=== PATIENT | female | born 1930 | race Caucasian/White ===

== ENCOUNTER 2016-06-23 18:53 | Emergency (ER) | payer OTHER, MEDICARE ==
[~2016-06-23] VITALS: Ht 152.4 cm; Wt 58.1 kg
[~2016-06-23 18:53] MED LIST: ALLOPURINOL300 M1 PO; DETROL LA4 M1 PO; METOPROLOL SUCC25 M1 PO; NORVASC5 M1 PO; PLAQUENIL200 M1 PO; PREDNISONE5 M1 PO; SENNA8.6 M3 PO; SIMVASTATIN5 M2 PO; SODIUM BICARBO650 M1 PO; ULTRACET TABLE1 EACH PO; VITAMIN D2000 UNI1 PO; ZESTRIL10 M1 PO
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
[2016-06-23] MEDS ORDERED: FOLIC ACID0.8 M2 PO (20:51)
[2016-06-23] MEDS ORDERED: LISINOPRIL10 M1 PO (20:51)
[2016-06-23] MEDS ORDERED: MAGNESIUM250 M2 PO (20:51)
[2016-06-23] MEDS ORDERED: VITAMIN B-121000 MC3 PO (20:52)
[2016-06-23] MEDS ORDERED: LISINOPRIL5 M1 PO (20:53)
[2016-06-23] MEDS ORDERED: LANSOPRAZOLE30 M2 PO (20:54)
--- NOTE | 2016-06-23 20:54 | CT SCAN REPORT ---
EXAMINATION: CT LUMBAR SPINE WITHOUT CONTRAST CLINICAL INFORMATION: Pain following a fall. COMPARISON: No relevant prior studies are available for comparison. TECHNIQUE: Helical non-contrast CT images were obtained through the lumbar spine and 1.25 and 2.5 mm axial reconstructions were reviewed along with sagittal and coronal MPRs. DLP: 303.50 mGy-cm FINDINGS: There is no acute fracture or subluxation. The normal lumbar lordosis is maintained. There is loss of intervertebral disc space height at T12-L1 as well as at L4-L5. There is grade 1/2 anterolisthesis of L4 on L5 with associated severe bilateral facet arthropathy. SPINAL LEVELS: T12-L1: Loss of disc space height. Disc osteophyte complex causing mild central canal stenosis. No significant neural foraminal stenosis. L1-L2: Disc osteophyte complex causing minimal central canal stenosis. Bilateral facet hypertrophy and uncinate spurring causing mild bilateral neural foraminal stenosis. L2-L3: Left lateral disc bulge and bilateral facet hypertrophy causes severe left and moderate right neural foraminal stenosis. No significant central canal stenosis. L3-L4: Small disc osteophyte complex. Severe bilateral facet arthropathy causing moderate bilateral neural foraminal stenosis. No significant central canal stenosis. L4-L5: Anterolisthesis of L4 on L5 with uncovering of the intervertebral disc and near-complete loss of intervertebral disc space height. Moderate central canal stenosis. Severe bilateral facet arthropathy. Moderate bilateral neuroforaminal stenosis. L5-S1: Disc osteophyte complex causing mild central canal stenosis. Bilateral facet hypertrophy causing mild bilateral neural foraminal stenosis. SOFT TISSUES: The visualized paraspinal soft tissues are unremarkable. There is diffuse atherosclerotic calcifications within the abdominal aorta and its branch vessels. IMPRESSION: 1. No fracture or subluxation. 2. 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 3. Anterolisthesis of L4 on L5 with moderate central canal as well as moderate bilateral neural foraminal stenosis.
--- NOTE | 2016-06-23 21:07 | RADIOLOGY REPORT ---
EXAMINATION: XR PELVIS CLINICAL INFORMATION: Pain following a fall. COMPARISON: No relevant prior studies are available for comparison. TECHNIQUE: AP view of the pelvis. FINDINGS: Severe degenerative disc disease within the visualized lower lumbar spine. Total right hip replacement without perihardware lucency to suggest loosening or infection. No acute osseous or hardware fracture. Severe left hip joint space narrowing with subchondral sclerosis and small marginal osteophytes. Phleboliths within the pelvis. IMPRESSION: 1. No acute fracture. 2. Severe degenerative disc disease within the visualized lower lumbar spine. 3. Severe left hip osteoarthritis. 4. 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
[2016-06-23] MEDS ORDERED: MACROBID 100 M100 MG PO (21:40)
[2016-06-23 21:46] VITALS: BP 134/76
--- NOTE | 2016-06-24 11:09 | NUR ---
06/24 CASE MGMT- CALL FROM PT DAUGHTER PRIMITIVO REQUESTING WE SET UP HHS FOR PT VIA [facility] [place] [phone]. W10 WAS NOT LEFT ON MY DESK OVERNIGHT WAS AT RISK MANAGEMENT CONSULTANT DESK, JUST RECEIVED. PT DAUGHTER STATING PT CAN NOT EVEN GET OUT OF BED BUT HAS SUPPORT AT HOME. PRIMITIVO ESTES HAS 3 SISTERS TO HELP AND PT BUT WILL BE ONLY AND PT OVER NIGHTS. I ENCOURAGED THAT IF PT COUD NOT GET OUT OF BED PT SHOULD RETURN BACK TO ER FOR PT EVALUATION AND POSSIBLE PLACEMENT. I EXPRESSED MY CONCERNS AND AGAIN STRONGLY ENCOURAGED PT RETURN BACK TO ER FOR PT EVAL. PT DAUGHTER WOULD RATHER HAVE HHS SET UP. SPOKE WITH KAT AT [facility] [place] AND INFORMED AND SHE STATES SHE WILL CONTACT PT DAUGHTER AND ENCOURAGE THE SAME BECAUSE IF THEY GET OUT THERE PER KAT AND PT CAN NOT GET OUT OF BED THEY WILL SEND HER BACK TO ER. DR ANDRES AWARE.
== END 2016-06-23 22:06 ==
LOC: ERH 18:53
DX: T14.8 Other injury of unspecified body region (principal); M51.36 Other intervertebral disc degeneration, lumbar region; R35.0 Frequency of micturition; W19.XXXA Unspecified fall, initial encounter; Y93.9 Activity, unspecified; Y92.9 Unspecified place or not applicable
CPT/HCPCS: 72170; 81001; 93005; 93010

== ENCOUNTER 2016-06-24 12:36 | Inpatient (IN) | payer OTHER, MEDICARE ==
[~2016-06-24] VITALS: Ht 152.4 cm; Wt 58.1 kg
[~2016-06-24 12:36] MED LIST changes: +FOLIC ACID0.8 M2 PO; +LANSOPRAZOLE30 M2 PO; +LISINOPRIL10 M1 PO; +LISINOPRIL5 M1 PO; +MACROBID 100 M100 MG PO; +MAGNESIUM250 M2 PO; +VITAMIN B-121000 MC3 PO
[2016-06-24 13:59] LABS: ABSOLUTE BASOPHIL COUNT 0 /CUMM (0.0-0.2); ABSOLUTE EOSINOPHIL COUNT 0 /CUMM (0.0-0.7); ABSOLUTE GRANULOCYTE CT 5.2 /CUMM (1.4-6.5); ABSOLUTE LYMPH COUNT 0.6 /CUMM (1.2-3.4); ABSOLUTE MONOCYTE COUNT 0.5 /CUMM (0.10-0.60); BASOPHIL % 0.3 % (0.0-2.0); EOSINOPHIL % 0 % (0-5); GRANULOCYTE % 82.9 % (42.2-75.2); MEAN CORPUSCULAR HGB 34.8 PG (27.0-31.0); MEAN CORPUSCULAR VOLUME 102.6 FL (81.0-99.0); MEAN PLATELET VOLUME 7.9 FL (7.4-10.4); PLATELET COUNT 137 /CUMM (130-400); RBC DISTRIBUTION WIDTH 14.6 % (11.5-14.5); RED BLOOD CELL CT 3.02 /CUMM (4.20-5.40); WHITE BLOOD CELL COUNT 6.3 /CUMM (4.8-10.8)
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
--- NOTE | 2016-06-24 15:54 | History & Physical ---
LILLY MESA 06/24/16 1554: General Information and HPI MD Statement: I have seen and personally examined BETTY FRIAS and documented this H&P. The patient is a 85 year old F who presented with a patient stated chief complaint of [FALL]. Source of Information: patient, family Exam Limitations: no limitations History of Present Illness: This is a 85-year-old pleasant female with past medical history of gout, hypertension, hyperlipidemia, osteoarthritis, chronic kidney disease stage 3, overactive bladder man with chief complain of lower back pain, and recurrent fall with bladder/bowel incontinence since last few days. Apparently the patient was visiting her daughter at a green party on Friday 2 days prior to admission, when she was trying to climb the concrete steps at her daughter's place, she was using the cane and was being helped by the daughter as well as the son, however in spite of this when she climbed her first step she had a mechanical fall, she felt on her pelvic area, did not have any dizziness, lightheadedness, tinnitus, palpitations or any syncope-like episode prior to the fall and this was a mechanical fall secondary to the weakness in the bilateral lower extremity. The family said that she did not injure her head. She has also been urinating more frequently than normal and has been having complete loss of bowel and bladder control since then. She is also complaining of pain in the lower lumbar and sacral area, which is sharp in nature intermittent, worse on moving or sitting up. He denied any fever, sore throat, congestion, abdominal pain, nausea, vomiting, diarrhea. However she does have weakness in bilateral lower extremity which have been gradual. It was noted that she has been falling more often recently. Patient was seen at the emergency department on 06/23/2016 after having a fall 2 days prior to admission mentioned above, CT lumbar spine was done on 06/23/2016 which showed degenerative disc disease and facet arthropathy throughout the lumbar spine, most prominent at T12-L1 and L4-L5, and anterior listhesis of L4 on L5 with moderate central canal and bilateral neural foraminal stenosis. xray of the pelvis on 06/23/2016 did not show any acute fracture, showed severe degenerative disc disease, severe left hip osteoarthritis.She was found to have positive UA and was discharged on nitrofurantoin in spite of DARLENE. However she returns today again with similar complaints. Allergies/Medications Allergies: Coded Allergies: NO KNOWN ALLERGIES (08/07/12) NKDA PER RADIOLOGY NURSE. -- CASSIDY 08/07/12 Compliance With Home Meds: FAIR Past History Travel History Traveled to [place] past 21 day No Medical History Neurological: NONE EENT: NONE Cardiovascular: hypertension, hyperlipidemia Respiratory: NONE Gastrointestinal: NONE Hepatic: NONE Renal: KIDNEY ISSUES PER PT OVERACTIVE BLADDER Musculoskeletal: ARTHRITIS FREQUENT FALLS Psychiatric: NONE Endocrine: NONE Blood Disorders: NONE Cancer(s): NONE SENIOR CORPORATE RECRUITER/Reproductive: NONE Tetanus Vaccine: 12/18/15 Surgical History Surgical History: non-contributory Past Family/Social History Psychosocial History Where do you live? Home Who Do You Live With? spouse Services at Home: None Primary Language: Kyrgyz Smoking Status: Never Smoked ETOH Use: denies use Illicit Drug Use: denies illicit drug use Functional Ability ADLs Independent: dressing, eating, toileting, bathing. Ambulation: walker IADLs Independent: shopping, housework, finances, food prep, telephone, transportation , medication admin. Review of Systems Review of Systems Constitutional: Reports: malaise, weakness. Denies: chills, diaphoresis, fever, unexplained weight loss. EENTM: Denies: blurred vision, double vision, visual changes, eye pain. Cardiovascular: Denies: chest pain, edema, orthopena, palpitations, peripheral edema. Respiratory: Denies: cough, hemoptysis, orthopnea, short of breath, sputum production, stridor, wheezing. GI: Reports: bowel incontinence. Denies: abdominal pain, bloating, constipation, diarrhea, distention, melena, nausea, bloody stool, changes in stool, vomiting, steatorrhea. Genitourinary: Reports: frequency, hesitation, urgency. Denies: discharge, dysuria, hematuria. Musculoskeletal: Reports: back pain. Skin: Reports: no symptoms. Neurological/Psychological: Denies: weakness. Hematologic/Endocrine: Reports: no symptoms. Immunologic/Allergic: Reports: no symptoms. All Other Systems: Reviewed and Negative Exam & Diagnostic Data Last 24 Hrs of Vital Signs/I&O Vital Signs Date Time Temp Pulse Resp B/P B/P Pulse O2 O2 Flow FiO2 Mean Ox Delivery Rate 06/24 1918 97.3 74 20 141/68 94 Room Air 05/01 1700 97.7 91 20 135/72 94 Room Air 06/24 1510 97.9 73 16 145/74 94 Room Air 06/24 1302 94 Room Air 06/24 1246 96.4 78 16 144/73 94 Room Air Physical Exam General Appearance Alert, Oriented X3, Cooperative, No Acute Distress Skin No Rashes, No Breakdown, No Significant Lesion Skin Temp/Moisture Exam: Warm/Dry Sepsis Skin Exam (color): Normal for Ethnicity HEENT Atraumatic, PERRLA, EOMI Neck Supple, No JVD Lymphatic no lad Cardiovascular Normal S1, Normal S2, No Murmurs Lungs Clear to Auscultation, Normal Air Movement Abdomen Normal Bowel Sounds, Soft, No Tenderness Neurological reduced strength in b/l LE , sensation intact, reflex 1+, decreased rectal tone, sensation intact in saddle and perianal area, CN intact,normal speech Extremities No Clubbing, No Cyanosis, mild edema Vascular Normal Pulses Sepsis Peripheral Pulse Exam: Normal Last 24 Hrs of Labs/David: Laboratory Tests 06/24/161807: Urine Color YEL, Urine Clarity CLEAR, Urine pH 6.5, Ur Specific [place] 1.015, Urine Protein 100 H, Urine Ketones NEG, Urine Nitrite POS H, Urine Bilirubin NEG, Urine Urobilinogen 0.2, Ur Leukocyte Esterase SMALL H, Ur Microscopic SEDIMENT EXAMINED, Urine WBC 10-15 H, Ur Epithelial Cells MOD H, Urine Bacteria MANY H, Urine Hemoglobin TRACE-LYSED, Urine Glucose NEG 06/24/16 1346: Anion Gap 8, Estimated GFR 31 L, BUN/Creatinine Ratio 24.4, Glucose 97, Calcium 9.0, Total Bilirubin 1.1, AST 38 H, ALT 38, Alkaline Phosphatase 80, Troponin I 0.07, Total Protein 6.2 L, Albumin 3.3 L, Globulin 2.9, Albumin/Globulin Ratio 1.1, CBC w Diff NO MAN DIFF REQ, RBC 3.02 L, MCV 102.6 H, MCH 34.8 H, RDW 14.6 H, MPV 7.9, Gran % 82.9 H, Lymphocytes % 9.2 L, Monocytes % 7.6, Eosinophils % 0, Basophils % 0.3, Absolute Granulocytes 5.2, Absolute Lymphocytes 0.6 L, Absolute Monocytes 0.5, Absolute Eosinophils 0, Absolute Basophils 0, PUBS MCHC 34.0 Microbiology 06/25 1807 URINE ROUT: Urine Culture - RECD Diagnostic Data EKG Results Normal sinus rhythm, rate of 77, left axis deviation, no acute ST-T wave changes , QTC of 458 slightly tall T waves in V2 which was present in the old EKG as well. CXR Results Chest x-ray did not show any acute cardiac pulmonary findings. Other Results CT lumbar spine on 06/23/2016 showed degenerative disc disease and facet arthropathy throughout the lumbar spine mostly T12 through L1 and L4 to L5 with moderate central canal stenosis and bilateral neural foraminal stenosis and L4 on L5. Assessment/Plan Assessment: In summary this is a 85-year-old pleasant female with past medical history of gout, hypertension, hyperlipidemia, osteoarthritis, chronic kidney disease stage III, over active bladder, was seen yesterday in the emergency department after having a fall 2 days prior to admission on 06/22/2016, with CT cervical spine showing moderate to severe spinal stenosis, no acute fractures, and discharged from the emergency department after being treated for positive UA with Macrobid, comes back to the ER again today with worsening back pain, bilateral lower extremity weakness, difficult and duration, with bowel and bladder incontinence. Vitals in the emergency department temperature of 97.9, pulse of 91, respiration of 20, blood pressure of 135 up to 145 systolic and around 72 diastolic, she was 94% saturating on room air. Patient was seen at the emergency department on 06/23/2016 after having a fall 2 days prior to admission mentioned above, CT lumbar spine was done on 06/23/2016 which showed degenerative disc disease and facet arthropathy throughout the lumbar spine, most prominent at T12-L1 and L4-L5, and anterior listhesis of L4 on L5 with moderate central canal and bilateral neural foraminal stenosis. Xray of the pelvis on 06/23/2016 did not show any acute fracture, showed severe degenerative disc disease, severe left hip osteoarthritis. He was found to have positive UA and was discharged on nitrofurantoin in spite of DARLENE. Relevant labs no white count,/H of 10.5/31.0, platelet of 137, BUN and creatinine of 39/1.6 which is her baseline, liver function tests are within normal limits. Initial set of troponin was negative. EKG was normal sinus rhythm with rate of 77, left axis to patient, no acute ST-T wave changes, QTC of 458. She was found ot haveb/l lower extremtiy weakness and loose rectal tone, no loss of sensation. We'll admit the patient to medicine floor for the treatment of following problems. #1 recurrent mechanical falls. #2 bilateral lower extremity weakness with bowel or bladder incontinence. #3 history of hypertension. #4 history of hyperlipidemia. #5 history of CKD stage III #6 history of chronic arthritis. Assessment and plan * continue monitoring vitals every shift. * Orthostatic vital sign. * Gentle IV hydration at 75 mL per hour one back only. * Check MRI of the spine as the patient has bowel/bladder incontinence, decreased rectal tone,, will need to rule out cauda equina syndrome, neurosurgery consult depending on findings of the MRI. * Repeat the UA and urine culture, will hold off on antibiotics for now as the patient is not febrile, does not have a white count. * Continue Lipitor 5 mg daily. * Continue Lopressor 25 mg every morning. * Continue folic acid, vitamin D and Norvasc at home dosage from tomorrow morning. * PT evaluation. * Moderate and severe pain pathway ordered. Patient is full code. DVT prophylaxis with subcutaneous heparin. Heart healthy diet As Ranked By This Provider Problem List: 1. DJD (degenerative joint disease) 2. Intractable back pain 3. Fall Core Measures/Miscellaneous Acute Coronary Syndrome ACS Diagnosis: No Cerebrovascular Accident CVA/TIA Diagnosis: No Congestive Heart Failure CHF Diagnosis: No Venous Thromboembolism VTE Risk Factors: Age > 40 No [facility] VTE prophylaxis d/t: No contraindications No VTE Pharm Prophylaxis d/t: No contraindications VTE Diagnosis: No VTE Type: NONE VTE Confirmed by (Test): NONE Severe Sepsis Severe Sepsis Present: No Septic Shock Septic Shock Present: No Miscellaneous Documentation Attending Case Discussed With: DEAN KOHLER MD Primary Care Physician: CONSTANCE PUENTE APRN Patient sees these Specialists .. Level of Patient Care: General Medicine DEAN KOHLER MD 06/24/16 1018: General Information and HPI Allergies/Medications Home Med list Allopurinol 300 MG TABLET 0.5 TAB PO QAM GOUT (Reported) Amlodipine Besylate (Norvasc) 5 MG TABLET 1 TAB PO QAM HTN (Reported) Aspirin (Ecotrin*) 81 MG TABLET.DR 81 MG PO DAILY stroke Atorvastatin Calcium 20 MG TABLET 20 MG PO 1700 stroke ppx Cholecalciferol (Vitamin D3) (Vitamin D) 2,000 UNIT TABLET 1 TAB PO QAM SUPPLEMENT (Reported) Cyanocobalamin (Vitamin B-12) (Unknown Strength) TABLET (Unknown Dose) PO QPM SUPPLEMENT (Reported) Folic Acid 0.8 MG TABLET 1 TAB PO QAM SUPPLEMENT (Reported) Hydroxychlorquine (Plaquenil) 200 MG TABLET 1 TAB PO BID ARTHRITIS (Reported) Lansoprazole 30 MG CAPSULE.DR 1 CAP PO QPM GI (Reported) Lisinopril 5 MG TABLET 1 TAB PO QAM BP (Reported) Magnesium Oxide (Magnesium) 250 MG TABLET 1 TAB PO QAM SUPPLEMENT (Reported) Metoprolol Succinate 25 MG TAB 1 TAB PO QAM HTN (Reported) Nitrofurantoin Monohyd/M-Cryst (Macrobid 100 MG Capsule) 100 MG CAPSULE 1 CAP PO BID UTI with food Prednisone 5 MG TABLET 1 TAB PO QAM ARTHRITIS (Reported) Simvastatin (Simvastatin*) 5 MG TABLET 1 TAB PO QPM CHOLESTEROL (Reported) Sodium Bicarbonate 650 MG TABLET 1 TAB PO BID SUPPLEMENT (Reported) Tolterodine Tartrate (Detrol LA) 4 MG CAP.ER.24H 1 CAP PO QPM OVERACTIVE BLADDER (Reported) Attending MD Review Statement Attending Statement Attending MD Statement: examined this patient, discuss w/resident/PA/MOCCASIN SEWER, agreed w/resident/PA/MOCCASIN SEWER, discussed with family, reviewed EMR data (avail), discussed with nursing, reviewed images, amended to note Attending Assessment/Plan: 85 y/o F with pmh sig for htn, hyperlipidemia, CKD stage 3, arthritis was seen in ER yesterday with a fall. She was discharged home with pain meds. She came in this am with worsening sx. she still complaining of excruciating pain in her back. Off note her urinalysis was found to be dirty yesterday and she was started on Macrobid although her creatinine is 1.6 and ideally speaking Macrobid is contraindicated. She has been combining of urine and bowel incontinence. she has some baseline urge incontinence but since yesterday she is urinating a lot without any warning. Daughter who was a combining the patient also claims that she is passing her stool with incontinence and without any warning. This is apparently new. The pain is in the lower back and its severe in intensity, exacerbated by movement. Patient denies any dizziness, chest and, headache, shortness of breath. She claims that she just lost her balance and she has been falling rather frequently in the past few months. Vital Signs Date Time Temp Pulse Resp B/P B/P Pulse O2 O2 Flow FiO2 Mean Ox Delivery Rate 06/24 1510 97.9 73 16 145/74 94 Room Air 06/24 1302 94 Room Air 06/24 1246 96.4 78 16 144/73 94 Room Air on exam; aox3, nad. cv; s1,s2, rrr resp; clear abd; soft, nt, bs+ ext; no edema. neuro: 4.5/5 strength b/l lower ext. Rectal tone to be checked by Resident. Laboratory Tests 06/24 1346 Chemistry Sodium (137 - 145 mmol/L) 132 L Potassium (3.5 - 5.1 mmol/L) 4.6 Chloride (98 - 107 mmol/L) 99 Carbon Dioxide (22 - 30 mmol/L) 25 Anion Gap (5 - 16) 8 BUN (7 - 17 mg/dL) 39 H Creatinine (0.5 - 1.0 mg/dL) 1.6 H Estimated GFR (>60 ml/min) 31 L BUN/Creatinine Ratio (7 - 25 %) 24.4 Glucose (65 - 99 mg/dL) 97 Calcium (8.4 - 10.2 mg/dL) 9.0 Total Bilirubin (0.2 - 1.3 mg/dL) 1.1 AST (14 - 36 U/L) 38 H ALT (9 - 52 U/L) 38 Alkaline Phosphatase (<127 U/L) 80 Troponin I (< 0.11 ng/ml) 0.07 Total Protein (6.3 - 8.2 g/dL) 6.2 L Albumin (3.5 - 5.0 g/dL) 3.3 L Globulin (1.9 - 4.2 gm/dL) 2.9 Albumin/Globulin Ratio (1.1 - 2.2 %) 1.1 Hematology CBC w Diff NO MAN DIFF REQ WBC (4.8 - 10.8 /CUMM) 6.3 RBC (4.20 - 5.40 /CUMM) 3.02 L Hgb (12.0 - 16.0 G/DL) 10.5 L Hct (37 - 47 %) 31.0 L MCV (81.0 - 99.0 FL) 102.6 H MCH (27.0 - 31.0 PG) 34.8 H RDW (11.5 - 14.5 %) 14.6 H Plt Count (130 - 400 /CUMM) 137 MPV (7.4 - 10.4 FL) 7.9 Gran % (42.2 - 75.2 %) 82.9 H Lymphocytes % (20.5 - 51.1 %) 9.2 L Monocytes % (1.7 - 9.3 %) 7.6 Eosinophils % (0 - 5 %) 0 Basophils % (0.0 - 2.0 %) 0.3 Absolute Granulocytes (1.4 - 6.5 /CUMM) 5.2 Absolute Lymphocytes (1.2 - 3.4 /CUMM) 0.6 L Absolute Monocytes (0.10 - 0.60 /CUMM) 0.5 Absolute Eosinophils (0.0 - 0.7 /CUMM) 0 Absolute Basophils (0.0 - 0.2 /CUMM) 0 PUBS MCHC (33.0 - 37.0 G/DL) 34.0 CT Lumbar spine. /done on 06/23/16. IMPRESSION: 1. No fracture or subluxation. 2. 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 3. Anterolisthesis of L4 on L5 with moderate central canal as well as moderate bilateral neural foraminal stenosis. A/P; 85 y/o F with pmh sig for htn, hyperlipidemia, CKD stage 3, arthritis, admitted with mechanical fall, lower back pain, urinary and bowel incontinence, ? UTI. Patient will be admitted to medicine floor. We will control her pain with analgesics. Patient should be on pain pathway. Please check rectal tone. We'll check an MRI of the LS spine. I'm concerned about patient's complains off urinary and bowel incontinence, need to rule out quada aquina syndrome. Repeat UA/urine cx and hold off on abx till results avaialble. Please confirm and continue home medications. Avoid nephrotoxins. PT eval should be obtained. DVT prophylaxis: Hep sq. Patient is a full code.
[2016-06-24 20:28] VITALS: BP 130/78
[2016-06-24 22:42] VITALS: BP 142/80
[2016-06-25 06:01] VITALS: BP 152/86
--- NOTE | 2016-06-25 07:12 | PN- Housestaff ---
YESSI GARCIA,MARYAM 06/25/16 0712: Subjective Follow-up For: fall with lower back pain Subjective: Pt was seen this morning, very pleasant, appeared comfortable sitting in bed. she reported recurrent falls due to imbalance, but denies syncope. supposed to get echo and holter monitor on july 05. she still have difficulty getting up due to pain. pt still reports urinary incontinence. no bm since yesterday. as mri could not be obtained today, neurosurgery was consulted over the phone ( details in the event note). decadron started as per neurosurg recc. labs reviewed, hb 10.5 to 9.7, na 132 to 135, bun/cr 39/1.6 to 37/1.5. we will get carotid us and echo. b12 , vit d, folate level checked. MRI head and spine tomorrow, her daughter will check if her hardwares are MRI compatible. Pt agreeable to go to rehab if needed. Review of Systems Constitutional: Reports: see HPI. Objective Last 24 Hrs of Vital Signs/I&O Vital Signs Date Time Temp Pulse Resp B/P B/P Pulse O2 O2 Flow FiO2 Mean Ox Delivery Rate 06/25 1216 Room Air Room Air 06/25 0944 76 130/58 06/25 0601 98.6 68 20 152/86 94 Room Air 06/24 2242 98.6 65 20 142/80 95 Room Air 06/24 2028 98.2 67 20 130/78 99 Room Air 06/24 1919 97.3 74 20 141/68 94 Room Air 06/24 1700 97.7 91 20 135/72 94 Room Air 06/24 1510 97.9 73 16 145/74 94 Room Air Intake & Output 06/25 1600 06/25 0800 06/25 0000 Intake Total 1000 200 Output Total 100 Balance 1000 100 Intake, IV 800 Intake, Oral 200 200 Output, Urine 100 Patient 58.06 kg Weight Weight Reported by Patient Measurement Method Physical Exam General Appearance: Alert, Oriented X3, Cooperative, No Acute Distress Cardiovascular: Regular Rate, systolic murmur present Lungs: Clear to Auscultation, Normal Air Movement Abdomen: Normal Bowel Sounds, Soft, No Tenderness Neurological: Normal Speech, strength 3/5 lower extremities. sensation intact. Extremities: No Edema Current Medications: Current Medications Sig/Aron Start time Last Medication Dose Route Stop Time Status Admin Acetaminophen 650 MG Q6P PRN 06/24 1715 AC PO Allopurinol 150 MG QAM 05/ 1000 AC 06/25 PO 1145 Amlodipine Besylate 5 MG QAM 05/ 1000 AC 06/25 PO 0944 Atorvastatin Calcium 5 MG 1700 / 1700 AC PO Cholecalciferol 2,000 IU DAILY / 1000 AC 05 PO 0944 Dexamethasone 4 MG Q6H / 1600 AC Dextrose/Water 50 ML IV 06/26 1029 Dexamethasone 4 MG Q6 06/25 1200 DC Dextrose/Water 50 ML IV 06/26 0629 Dexamethasone 10 MG ONCE ONE 06/25 0915 DC 06/25 Dextrose/Water 50 ML IV 06/25 0945 0946 Docusate Sodium 100 MG BID 06/25 1200 AC 06/25 PO 1241 Folic Acid 1 MG DAILY 06/25 1000 AC 06/25 PO 0941 Heparin Sodium 0 .STK-MED ONE 06/24 1834 DC (Porcine) .ROUTE Heparin Sodium 5,000 UNIT Q8 06/24 1709 AC 06/25 (Porcine) SC 0528 Hydroxychloroquine 200 MG BID 06/25 1000 AC 06/25 Sulfate PO 1144 Lisinopril 5 MG QAM 06/25 1000 AC 06/25 PO 0944 Metoprolol Tartrate 25 MG QAM 06/25 1000 AC 06/25 PO 0944 Morphine Sulfate 1 MG Q6-PRN PRN 06/25 0915 AC IV Omeprazole 20 MG DAILY AC 06/25 0918 AC 06/25 PO 1144 Oxybutynin Chloride 5 MG BID 06/24 2200 AC 06/25 PO 0941 Oxycodone HCl 0 .STK-MED ONE 06/24 1834 DC PO Oxycodone HCl 5 MG Q6H 06/24 1715 DC 06/25 PO 0527 Oxycodone/ 2 TAB Q6P PRN 06/24 1715 AC 06/25 Acetaminophen PO 1145 Polyethylene Glycol 17 GM DAILY 06/25 1150 AC 06/25 PO 1241 Senna 187 MG AT BEDTIME 06/25 2200 AC PO Sodium Bicarbonate 650 MG BID 06/25 1000 AC 06/25 PO 1144 Sodium Chloride 1,000 ML .[id number] 06/24 1715 DC 05 IV 06/25 0634 1836 Last 24 Hrs of Lab/David Results Last 24 Hrs of Labs/Mics: Laboratory Tests 06/25/16 0646: Anion Gap 10, Estimated GFR 33 L, BUN/Creatinine Ratio 24.7, Vitamin B12 900, 25-OH Vitamin D Total 35.9, Folate > 20.0 H, CBC w Diff NO MAN DIFF REQ, RBC 2.74 L, MCV 103.7 H, MCH 35.3 H, RDW 15.0 H, MPV 7.9, Gran % 66.5, Lymphocytes % 23.9, Monocytes % 9.3, Eosinophils % 0, Basophils % 0.3, Absolute Granulocytes 3.8, Absolute Lymphocytes 1.4, Absolute Monocytes 0.5, Absolute Eosinophils 0, Absolute Basophils 0, PUBS MCHC 34.0 06/24/161807: Urine Color YEL, Urine Clarity CLEAR, Urine pH 6.5, Ur Specific [place] 1.015, Urine Protein 100 H, Urine Ketones NEG, Urine Nitrite POS H, Urine Bilirubin NEG, Urine Urobilinogen 0.2, Ur Leukocyte Esterase SMALL H, Ur Microscopic SEDIMENT EXAMINED, Urine WBC 10-15 H, Ur Epithelial Cells MOD H, Urine Bacteria MANY H, Urine Hemoglobin TRACE-LYSED, Urine Glucose NEG Microbiology 06/25 1807 URINE ROUT: Urine Culture - RES Assessment/Plan Assessment: 85-year-old pleasant female with past medical history of gout, hypertension, hyperlipidemia, osteoarthritis, chronic kidney disease stage III, over active bladder, was seen the day prior to admission in the emergency department after having a fall 2 days prior to admission on 06/22/2016, with CT cervical spine showing moderate to severe spinal stenosis, no acute fractures, and discharged from the emergency department after being treated for positive UA with 1 day of Macrobid, comes back to the ER again with worsening back pain, bilateral lower extremity weakness, with bowel and bladder incontinence. # Lower back pain with new stool incontinence s/p recurrent mechanical falls - CT lumbar spine was done on 06/23/2016 which showed degenerative disc disease and facet arthropathy throughout the lumbar spine, most prominent at T12-L1 and L4-L5, and anterior listhesis of L4 on L5 with moderate central canal and bilateral neural foraminal stenosis. - Xray of the pelvis on 06/23/2016 did not show any acute fracture, showed severe degenerative disc disease, severe left hip osteoarthritis. * Neurosurgery consulted, low suspicion of acute cord compression * Workup for recurrent falls: b12, vit d, folate levels are normal. Follow up echocardiogram, carotid doppler, MRI head, MRI spine * PT for discharge recc * Neurocheck q4 * Decadron given as per neurosurgery recc * Pain control with morphine, percocet, tylenol. Would avoid NSAIDs given CKD. # Asymptomatic bacteriuria - 06/23/16: She was found to have positive UA and was discharged on nitrofurantoin, took it for one day. * Follow UC * Follow off abx # History of hypertension * Continue Lopressor 25 mg every morning and norvasc # History of hyperlipidemia * Lipitor 5 mg daily # history of CKD stage III # history of chronic arthritis. # Home meds * Continue folic acid, vitamin D DVT prophylaxis with subcutaneous heparin. Heart healthy diet Patient is full code. Problem List: 1. Intractable back pain Pain Ratin Pain Location: lower back Pain Goal: Pain 7 or less Pain Plan: morphine , percocet Tomorrow's Labs & Rationales: cbc anemia bep hyponatremia, elizabeth on ckd DVT/Prophylaxis: mechanical, pharmacological MARTINEZ ACKERMAN 06/25/16 1250: Attending MD Review Statement Attending Statement Attending MD Statement: examined this patient, discuss w/resident/PA/ELEMENTARY SUBSTITUTE TEACHER, agreed w/resident/PA/ELEMENTARY SUBSTITUTE TEACHER, discussed with family, reviewed EMR data (avail), discussed with nursing, discussed with case mgmt, reviewed images, amended to note Attending Assessment/Plan: 85 O/F ASSESSMENT 1. Recurrent falls. 2. hyperlipidemia 3. CKD stage 3 4. arthritis 5. Hypertension. 6. low back pain 7. urinary and bowel incontinence. 8. Possible UTI. 9. AOCD. PLAN 1. admitted to inpatient medical services, frequent neurochecks. 2. Neurosurgery consulted, no acute surgical intervention. c/w high dose steroids, obtain MRI spine. 3. w/u for recurrent fall including vit b12, folate, Carotid USG, MRI brain, echo. scheduled o/p for holter on July 05. 4. f/u cultures , monitor off abx for now. 5. Anemia multifacotrial 6. supportive care, monitor labs Patient/family (daughter bedside) explained patients current management plan to which they agree. d/fri nurse, staff, TTS >37 min.
[2016-06-25 07:36] LABS: ABSOLUTE BASOPHIL COUNT 0 /CUMM (0.0-0.2); ABSOLUTE EOSINOPHIL COUNT 0 /CUMM (0.0-0.7); ABSOLUTE GRANULOCYTE CT 3.8 /CUMM (1.4-6.5); ABSOLUTE LYMPH COUNT 1.4 /CUMM (1.2-3.4); ABSOLUTE MONOCYTE COUNT 0.5 /CUMM (0.10-0.60); BASOPHIL % 0.3 % (0.0-2.0); EOSINOPHIL % 0 % (0-5); GRANULOCYTE % 66.5 % (42.2-75.2); HEMATOCRIT 28.4 % (37-47); MEAN CORPUSCULAR HGB 35.3 PG (27.0-31.0); MEAN CORPUSCULAR VOLUME 103.7 FL (81.0-99.0); MEAN PLATELET VOLUME 7.9 FL (7.4-10.4); PLATELET COUNT 124 /CUMM (130-400); RED BLOOD CELL CT 2.74 /CUMM (4.20-5.40); WHITE BLOOD CELL COUNT 5.8 /CUMM (4.8-10.8)
--- NOTE | 2016-06-25 09:33 | Event Note ---
Event Note Event Note: Spoke to neurosurgical staff astronomy department chair and discussed the patient's presentation and the CAT scan findings. I also updated them the patient had one episode of stool incontinence. Given that the patient has normal motor and sensory function in her legs. No acute surgical intervention was needed. They recommended he continue his IV Decadron 10 mg once after that 4 mg every 6 for the next 24 hours,For anti-inflammatory effect status post fall. They also recommended if any neurological status happens consulting neurology.
--- NOTE | 2016-06-25 15:05 | Discharge Summary ---
Visit Information Visit Dates Admission Date: 06/24/16 Discharge Date: 06/27/16 Hospital Course Course Attending Physician: MARTINEZ ACKERMAN MD Primary Care Physician: CONSTANCE PUENTE APRN Hospital Course: 85 y/o F with pmh sig for htn, hyperlipidemia, CKD stage 3, arthritis was seen in ER yesterday with a fall. She was discharged home with pain meds. She came in this am with worsening sx. she complained of excruciating pain in her back. Off note her urinalysis was found to be dirty yesterday and she was started on Macrobid although her creatinine is 1.6 and ideally speaking Macrobid is contraindicated. She has been complainng of urine and bowel incontinence. she has some baseline urge incontinence but since yesterday she is urinating a lot without any warning. Daughter who was a combining the patient also claims that she is passing her stool with incontinence and without any warning. This is apparently new. The pain is in the lower back and its severe in intensity, exacerbated by movement. Patient denied any dizziness, chest and, headache, shortness of breath. She claims that she just lost her balance and she has been falling rather frequently in the past few months. Vital Signs Date Time Temp Pulse Resp B/P B/P Pulse O2 O2 Flow FiO2 Mean Ox Delivery Rate 06/24 1510 97.9 73 16 145/74 94 Room Air 06/24 1302 94 Room Air 06/24 1246 96.4 78 16 144/73 94 Room Air on exam; aox3, nad. cv; s1,s2, rrr resp; clear abd; soft, nt, bs+ ext; no edema. neuro: 4.5/5 strength b/l lower ext. Laboratory Tests 06/24 1346 Chemistry Sodium (137 - 145 mmol/L) 132 L Potassium (3.5 - 5.1 mmol/L) 4.6 Chloride (98 - 107 mmol/L) 99 Carbon Dioxide (22 - 30 mmol/L) 25 Anion Gap (5 - 16) 8 BUN (7 - 17 mg/dL) 39 H Creatinine (0.5 - 1.0 mg/dL) 1.6 H Estimated GFR (>60 ml/min) 31 L BUN/Creatinine Ratio (7 - 25 %) 24.4 Glucose (65 - 99 mg/dL) 97 Calcium (8.4 - 10.2 mg/dL) 9.0 Total Bilirubin (0.2 - 1.3 mg/dL) 1.1 AST (14 - 36 U/L) 38 H ALT (9 - 52 U/L) 38 Alkaline Phosphatase (<127 U/L) 80 Troponin I (< 0.11 ng/ml) 0.07 Total Protein (6.3 - 8.2 g/dL) 6.2 L Albumin (3.5 - 5.0 g/dL) 3.3 L Globulin (1.9 - 4.2 gm/dL) 2.9 Albumin/Globulin Ratio (1.1 - 2.2 %) 1.1 Hematology CBC w Diff NO MAN DIFF REQ WBC (4.8 - 10.8 /CUMM) 6.3 RBC (4.20 - 5.40 /CUMM) 3.02 L Hgb (12.0 - 16.0 G/DL) 10.5 L Hct (37 - 47 %) 31.0 L MCV (81.0 - 99.0 FL) 102.6 H MCH (27.0 - 31.0 PG) 34.8 H RDW (11.5 - 14.5 %) 14.6 H Plt Count (130 - 400 /CUMM) 137 MPV (7.4 - 10.4 FL) 7.9 Gran % (42.2 - 75.2 %) 82.9 H Lymphocytes % (20.5 - 51.1 %) 9.2 L Monocytes % (1.7 - 9.3 %) 7.6 Eosinophils % (0 - 5 %) 0 Basophils % (0.0 - 2.0 %) 0.3 Absolute Granulocytes (1.4 - 6.5 /CUMM) 5.2 Absolute Lymphocytes (1.2 - 3.4 /CUMM) 0.6 L Absolute Monocytes (0.10 - 0.60 /CUMM) 0.5 Absolute Eosinophils (0.0 - 0.7 /CUMM) 0 Absolute Basophils (0.0 - 0.2 /CUMM) 0 PUBS MCHC (33.0 - 37.0 G/DL) 34.0 CT Lumbar spine. /done on 06/23/16. IMPRESSION: 1. No fracture or subluxation. 2. 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 3. Anterolisthesis of L4 on L5 with moderate central canal as well as moderate bilateral neural foraminal stenosis. 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 Degenerative disc disease is most severe at L4-L5 and grade 2 anterolisthesis of L4 on L5. No radiological evidence of nerve impingement or cauda equina syndrome 2.Recurrent Unspecified falls -Mechanical and likely age relatd 4.Atherosclerotic disease of the Right Internal carotid artery-This was an incidental finding on this hospitalizationa and was revelaed as part of workup for recurrent falls 5.History of rheumatoid arthritis on hydroxychloroquine and prednisone 5 mg daily 6 CK D stage III not on hemodialysis 7.h/o urinary incintinence with no evidence of uti Hospital course The patient was maintained on Gen. medicine floor. On the first day she complained of persistent low back pain. This was further evaluated with further imaging which included MRI of the lumbar spine which did not show any acute pathology or fractures or any nerve root impingement We also evaluated her for posterior cerebellar stroke considering new onset of mild dysphagia and recurrent falls. MRI of the head was negative for any acute cerebellar infarct or ischemia. She was also evaluated by the neurosurgery and neurology. She was given IV Decadron for 24 hours to subside the inflammation around the lumbar spine. This was discontinued later. The patient also had a swallow evaluation done in the hospital and was cleared for regular diet with ground meat. For the patient's Right Atherosclerotic disease she was evaluated by the vascular surgeon Given the patient's asymptomatic status, her other ongoing medical issues, and the lack of a true hemodynamically significant plaque, they do not recommend surgical intervention at this time. She was however started on aspirin 81 mg daily and which we determined that she should be maintained on outpatient basis too.We al;so increased the atorvasatin therapy to 20 mg daily. For further imaging of the carotid ultrasound CTA of the neck was recommended but considering her, given her DARLENE, vasular do not feel this was indicated. The patient should follow-up with Dr. Osullivan on discharge for Holter Monitor on 07/05/16. Patient is being discharged to [facility] for better Physical strength and regain her baseline physcial activity. Complications: none Allergies: Coded Allergies: NO KNOWN ALLERGIES (08/07/12) NKDA PER RADIOLOGY NURSE. -- CASSIDY 08/07/12 Significant Procedures: ECHOCARDIOgram: BETTY FRIAS Age: 85 : 1930 Gender: F Exam Date: 06/25/2016 19:57 Exam Location: [address] [place] [address] Ht (in): 60 Wt (lb): 128 BSA: 1.58 BP: 130 / 58 Ordering Physician: MARYAM DICKSON MD Referring Physician: MARYAM DICKSON MD Technologist: Leticia Smith [facility] Room Number: 219-02 Indications: PRESYNCOPE/SYNCOPE Rhythm: Technical Quality: Fair FINDINGS Left Ventricle Left ventricular cavity size normal. Left ventricular wall thickness mildly increased. Paradoxical septal motion. Left ventricular ejection fraction is estimated at 55 %. Abnormal relaxation filling pattern of the left ventricle for (stage 1 diastolic dysfunction). Right Ventricle Normal right ventricular size and function. Right Atrium Normal right atrial size. Left Atrium Mild left atrial dilatation. Mitral Valve Mild mitral annular calcification. No mitral stenosis. Moderate mitral regurgitation. Aortic Valve Aortic sclerosis. Trace aortic regurgitation. Mild aortic stenosis. Tricuspid Valve Structurally normal tricuspid valve. Mild tricuspid regurgitation. Unable to estimate the right ventricular systolic pressure. Pulmonic Valve Pulmonic valve not well visualized, grossly normal. Pericardium No pericardial effusion. Great Vessels Normal size aortic root. CONCLUSIONS Left ventricular cavity size normal. Left ventricular wall thickness mildly increased. Paradoxical septal motion. Left ventricular ejection fraction is estimated at 55 %. Abnormal relaxation filling pattern of the left ventricle for (stage 1 diastolic dysfunction). Normal right ventricular size and function. Mild left atrial dilatation. Moderate mitral regurgitation. Mild aortic stenosis. Unable to estimate the right ventricular systolic pressure. Vincent Blake M.D. (Electronically Signed) Final Date: 26 Jun 2016 09:53 MEASUREMENTS (Male / Female) Normal Values 2D ECHO LV Diastolic Diameter PLAX 3.4 cm 4.2 - 5.9 / 3.9 - 5.3 cm LV Systolic Diameter PLAX 2.3 cm 2.1 - 4.0 cm LV Fractional Shortening PLAX 32.4 % 25 - 46 % LV Ejection Fraction 2D Teich 61.8 % IVS Diastolic Thickness 1.4 cm LVPW Diastolic Thickness 1.3 cm LV Relative Wall Thickness 0.8 RV Internal Dim ED PLAX 2.4 cm 1.9 - 3.8 cm LVOT Diameter 2.1 cm Aortic Root Diameter 2.4 cm LA Systolic Diameter LX 3.4 cm 3.0 - 4.0 / 2.7 - 3.8 cm LA Volume 34.0 cm 18 - 58 / 22 - 52 cm Ascending Aorta Diameter 2.9 cm DOPPLER AV Peak Velocity 279.0 cm/s AV Peak Gradient 31.1 mmHg AV Mean Velocity 209.0 cm/s AV Mean Gradient 19.0 mmHg AV Velocity Time Integral 74.9 cm LVOT Peak Velocity 81.2 cm/s LVOT Peak Gradient 2.6 mmHg LVOT Mean Velocity 57.7 cm/s LVOT Mean Gradient 2.0 mmHg LVOT Velocity Time Integral 21.1 cm LVOT Stroke Volume 73.1 cm AV Area Cont Eq vti 1.0 cm AV Area Cont Eq pk 1.0 cm MV Peak Velocity 126.0 cm/s MV Peak Gradient 6.4 mmHg MV Mean Velocity 58.7 cm/s MV Mean Gradient 2.0 mmHg Mitral E Point Velocity 47.4 cm/s Mitral A Point Velocity 95.8 cm/s Mitral E to A Ratio 0.5 MV PHT Velocity 65.2 cm/s MV Deceleration Beadle 119.0 cm/s MV Pressure Half Time 164.4 ms MV Area PHT 1.3 cm MV Deceleration Time 473.0 ms TR Peak Velocity 295.0 cm/s TR Peak Gradient 34.8 mmHg Right Atrial Pressure 5.0 mmHg Pulmonary Artery Systolic Pressu 39.8 mmHg Right Ventricular Systolic Press 39.8 mmHg PV Peak Velocity 97.9 cm/s PV Peak Gradient 3.8 mmHg PV Mean Velocity 66.4 cm/s PV Mean Gradient 2.0 mmHg PV Velocity Time Integral 21.5 cm LV E' Lateral Velocity 4.3 cm/s Mitral E to LV E' Lateral Ratio 10.9 LV E' Septal Velocity 4.4 cm/s Mitral E to LV E' Septal Ratio 10.8 MRI Lumbar Spine: 1. No evidence of spinal cord compression. 2. 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 Degenerative disc disease is most severe at L4-L5 and there is grade 2 anterolisthesis of L4 on L5. The neural foraminal stenosis is most severe on the right at L4-L5. 3. Patchy bone marrow edema is present within the sacrum. Also, there appears to be a horizontally oriented fracture involving the anterior cortex of S2. EXAM TYPE: MRI - MRI-HEAD W/O MAKAYLA EXAMINATION: MR BRAIN WITHOUT CONTRAST CLINICAL INFORMATION: Recurrent falls. COMPARISON: Head CT from 12/18/2015. TECHNIQUE: Multiplanar, multisequence imaging of the brain was performed without contrast. The study is limited due to motion artifacts. FINDINGS: No diffusion abnormalities are identified to suggest an acute or subacute infarct. There is no evidence of hydrocephalus. No mass effect or midline shift is seen. Moderate chronic white matter microangiopathic changes are noted with diffuse parenchymal volume loss. No extra-axial fluid collections are seen. The brainstem is normal. 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 A punctate focus of low signal on the gradient acquisition in the right cerebellar white matter is nonspecific and may be due to mineralization versus chronic hemosiderin. The craniovertebral junction, marrow signal, and midline structures are normal. The major intracranial flow voids at the level of the [place] of [place] are preserved. The dural venous sinus flow voids are maintained. The mastoid air cells and paranasal sinuses are well aerated. IMPRESSION: Limited study with motion artifacts. No acute infarct. Moderate chronic white matter microangiopathy and generalized parenchymal volume loss. EXAM TYPE: US - [id number] DOPPLER EXAMINATION: BILATERAL DUPLEX CAROTID ULTRASOUND CLINICAL INDICATION: Recurrent falls. 2. Changes or focal neurological deficits. COMPARISON: None TECHNIQUE: Real-time ultrasound and Doppler techniques (integrating B-mode 2D vascular images, Doppler spectral analysis and color flow Doppler imaging) were utilized to interrogate the extracranial carotid and vertebral arteries bilaterally FINDINGS: On the RIGHT, there is no moderate mixed plaque present at the carotid bifurcation extending into the proximal internal carotid artery. There is a mobile echogenic material attached to the eccentric calcified plaque in the proximal internal carotid artery most likely representing thrombus attached to an area of ulceration. In the distal CCA, the peak systolic velocity is 89 cm/sec. In the proximal ICA, the peak systolic velocity is 122 cm/sec, and the end diastolic velocity is 29 cm/sec. In the proximal ECA, the peak systolic velocity is 114 cm/sec. On the LEFT, there is moderate mixed plaque present at the carotid bifurcation. In the distal CCA, the peak systolic velocity is 63 cm/sec. In the proximal ICA, the peak systolic velocity is 125 cm/sec, and the end diastolic velocity is 34 cm/sec. In the proximal ECA, the peak systolic velocity is 1:30 cm/sec. The vertebral arteries show antegrade flow with normal waveforms bilaterally. IMPRESSION: 1. The right internal carotid artery shows no hemodynamically significant (0-49%) stenosis. However, there is eccentric calcified plaque in the proximal right internal carotid artery to mobile material is attached, most likely representing adherent thrombus to a focal area of plaque ulceration. This lesion despite not leading to a hemodynamically significant stenosis is considered to be high risk for thromboembolic disease. Consideration of antiplatelet therapy without or with anticoagulation is recommended. 2. The left internal carotid artery shows no hemodynamically significant (0-49%) stenosis. Pertinent Lab Results: Laboratory Tests 06/26 0640 Chemistry Sodium (137 - 145 mmol/L) 131 L Potassium (3.5 - 5.1 mmol/L) 4.6 Chloride (98 - 107 mmol/L) 102 Carbon Dioxide (22 - 30 mmol/L) 20 L Anion Gap (5 - 16) 9 BUN (7 - 17 mg/dL) 44 H Creatinine (0.5 - 1.0 mg/dL) 1.6 H Estimated GFR (>60 ml/min) 31 L BUN/Creatinine Ratio (7 - 25 %) 27.5 H Hematology CBC w Diff NO MAN DIFF REQ WBC (4.8 - 10.8 /CUMM) 3.9 L RBC (4.20 - 5.40 /CUMM) 2.71 L Hgb (12.0 - 16.0 G/DL) 9.5 L Hct (37 - 47 %) 27.9 L MCV (81.0 - 99.0 FL) 102.9 H MCH (27.0 - 31.0 PG) 35.0 H RDW (11.5 - 14.5 %) 14.1 Plt Count (130 - 400 /CUMM) 133 MPV (7.4 - 10.4 FL) 8.1 Gran % (42.2 - 75.2 %) 87.2 H Lymphocytes % (20.5 - 51.1 %) 9.4 L Monocytes % (1.7 - 9.3 %) 3.2 Eosinophils % (0 - 5 %) 0 Basophils % (0.0 - 2.0 %) 0.2 Absolute Granulocytes (1.4 - 6.5 /CUMM) 3.4 Absolute Lymphocytes (1.2 - 3.4 /CUMM) 0.4 L Absolute Monocytes (0.10 - 0.60 /CUMM) 0.1 L Absolute Eosinophils (0.0 - 0.7 /CUMM) 0 Absolute Basophils (0.0 - 0.2 /CUMM) 0 PUBS MCHC (33.0 - 37.0 G/DL) 34.1 24 TOTALS 06/26 0000 05 0000 Intake Total 2050 200 Output Total 100 Balance 2050 100 Intake, IV 1120 Intake, Oral 930 200 Number 0 Bowel Movements Output, Urine 100 Patient 128 lb Weight Weight Reported by Patient Measurement Method Disposition Summary Disposition Principal Diagnosis: Low back pain Additional Diagnosis: 2.Recurrent falls-likley from Posterior cerebellar Stroke 3.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 5. History of rheumatoid arthritis on hydroxychloroquine and prednisone 5 mg daily Discharge Disposition: SNF Discharge Instructions General Discharge Information Code Status: Full Code Patient's Diet: as tolerated patinet on regular and thin diet .recommedn ground meat. Patient's Activity: As toolerated Follow-Up Instructions/Appts: f/u with pcp in1 week of discharge f/u with dr Spence on 07/05/16 for holter monitor Medications at Discharge Discharge Medications: Stop taking the following medications: Simvastatin (Simvastatin*) 5 MG TABLET ORAL Every night Qty = 90 Nitrofurantoin Monohyd/M-Cryst (Macrobid 100 MG Capsule) 100 MG CAPSULE ORAL TWICE DAILY Qty = 14 Continue taking these medications: Sodium Bicarbonate (Sodium Bicarbonate) 650 MG TABLET 1 Tablet ORAL TWICE DAILY Qty = 180 Allopurinol (Allopurinol) 300 MG TABLET 0.5 Tablet ORAL Every Morning Qty = 30 Metoprolol Succinate (Metoprolol Succinate) 25 MG TAB 1 Tablet ORAL Every Morning Qty = 90 Amlodipine Besylate (Norvasc) 5 MG TABLET 1 Tablet ORAL Every Morning Qty = 30 Tolterodine Tartrate (Detrol LA) 4 MG CAP.ER.24H 1 Capsule ORAL Every night Qty = 30 Hydroxychlorquine (Plaquenil) 200 MG TABLET 1 Tablet ORAL TWICE DAILY Qty = 180 Prednisone (Prednisone) 5 MG TABLET 1 Tablet ORAL Every Morning Qty = 60 Cholecalciferol (Vitamin D3) (Vitamin D) 2,000 UNIT TABLET 1 Tablet ORAL Every Morning Folic Acid (Folic Acid) 0.8 MG TABLET 1 Tablet ORAL Every Morning Magnesium Oxide (Magnesium) 250 MG TABLET 1 Tablet ORAL Every Morning Cyanocobalamin (Vitamin B-12) (Unknown Strength) TABLET Unknown Dose ORAL Every night Lisinopril (Lisinopril) 5 MG TABLET 1 Tablet ORAL Every Morning Qty = 90 Lansoprazole (Lansoprazole) 30 MG CAPSULE.DR 1 Capsule ORAL Every night Start taking the following new medications: Aspirin (Ecotrin*) 81 MG TABLET.DR 81 Milligram ORAL DAILY Qty = 30 No Refills Atorvastatin Calcium (Atorvastatin Calcium) 20 MG TABLET 20 Milligram ORAL 5 PM Qty = 30 No Refills Copies To: BRIAN GARCIA,FRANKLYN; CONSTANCE PUENTE APRN; DAYANA GARCIA,NATASHA Molina Attending MD Review Statement Documenting Attending: MEKA GARCIA,MARTINEZ
[2016-06-25 15:20] VITALS: BP 140/78
--- NOTE | 2016-06-25 16:44 | Event Note ---
Event Note Event Note: We spoke in length with the patient's family(this included the patient herself and the patient's elder sister) and also updated him about the ultrasound findings ULCERATED atherosclerotic plaque in the carotid arteries. We offered them the option of further evaluateion off the clot with CTA and also offered them anticoagulation with IV heparin, after explaining the risks and benefits. The patient family and the patient herself refused any studies with IV contrast. At this point, the family wanted more time to decide on the intervention and any use of IV heparin or antiplatelet therapy and agreed that they would discuss this with their other family members and would like a vascular surgical input on this matter. Plan of action after the meeting 1. Vascular surgeon was contacted, and we would follow the recommendation 2. As per the patient and the patient's family decision no CTA would be performed and we would avoid IV contrast studies 3. After reviewing the patient's previous records and was noted, and the patient was on Coumadin daily June 2015 but was stopped apparently due to GI bleed. Hence we will await vascular input and family's final decision regarding the starting of any anticoagulation therapy. (wihethert IV hepatin or PLavix) 4.We will increase the patient's statin to 20 mg daily 5. We will perform MRA of the head and neck in the morning. The above plan was discussed in detail with the patient, patient's family, the medical attending Dr. Avelar And the rest of the medical team taking care of the patient Also to be noted after revieweing the [facility] colon[facility] report in 2009 pateint was taken of the Coumadin for GI bleeding. The reason for Coumadin is not sure so far.
--- NOTE | 2016-06-25 19:07 | ULTRASOUND REPORT ---
EXAMINATION: BILATERAL DUPLEX CAROTID ULTRASOUND CLINICAL INDICATION: Recurrent falls. 2. Changes or focal neurological deficits. COMPARISON: None TECHNIQUE: Real-time ultrasound and Doppler techniques (integrating B-mode 2D vascular images, Doppler spectral analysis and color flow Doppler imaging) were utilized to interrogate the extracranial carotid and vertebral arteries bilaterally FINDINGS: On the RIGHT, there is no moderate mixed plaque present at the carotid bifurcation extending into the proximal internal carotid artery. There is a mobile echogenic material attached to the eccentric calcified plaque in the proximal internal carotid artery most likely representing thrombus attached to an area of ulceration. In the distal CCA, the peak systolic velocity is 89 cm/sec. In the proximal ICA, the peak systolic velocity is 122 cm/sec, and the end diastolic velocity is 29 cm/sec. In the proximal ECA, the peak systolic velocity is 114 cm/sec. On the LEFT, there is moderate mixed plaque present at the carotid bifurcation. In the distal CCA, the peak systolic velocity is 63 cm/sec. In the proximal ICA, the peak systolic velocity is 125 cm/sec, and the end diastolic velocity is 34 cm/sec. In the proximal ECA, the peak systolic velocity is 1:30 cm/sec. The vertebral arteries show antegrade flow with normal waveforms bilaterally. IMPRESSION: 1. The right internal carotid artery shows no hemodynamically significant (0-49%) stenosis. However, there is eccentric calcified plaque in the proximal right internal carotid artery to mobile material is attached, most likely representing adherent thrombus to a focal area of plaque ulceration. This lesion despite not leading to a hemodynamically significant stenosis is considered to be high risk for thromboembolic disease. Consideration of antiplatelet therapy without or with anticoagulation is recommended. 2. The left internal carotid artery shows no hemodynamically significant (0-49%) stenosis. The ultrasound findings and concerns were directly communicated to Dr. Angella Camilo via personal phone call at 15:00 hours on 06/25/2016.
[2016-06-25 22:22] VITALS: BP 132/80
[2016-06-26 06:48] VITALS: BP 180/82
--- NOTE | 2016-06-26 06:54 | PN- Housestaff ---
YESSI GARCIA,MARYAM 06/26/16 0654: Subjective Follow-up For: back pain after fall Subjective: Pt reported "throwing up" "mostly phlegm" after eating chicken last night, also reported "choking" while eating chicken, this is the first time this has happened. Hence swallow evaluation was obtained. her bp was elevated at 180/82, 166/88 this morning. she reports feeling anxious about the possibility of needed endarterectomy. Results of carotid US, MRI head, MRI lumbar, and echocardiogram reviewed. after extensive discussion with vascular surgery, neurology, family (pt's 2 daughters), we will not pursue endarterctomy at this time and they have agreed to baby aspirin. refused plavix/ anymore blood thinners. pt and family refused cta to further evaluate carotid lesion. risk and benefits have been clearly outlined and pt and her 2 daughters have shown clear understanding of the matter. her daughters are most interested in getting her to a rehab facility because they are concerned that they cannot adequately care for her at home with the recurrent falls. pt would prefer to be home with her , as their 65th wedding anniversary is coming up, however she is agreeable to going to rehab. Review of Systems Constitutional: Reports: see HPI. Objective Last 24 Hrs of Vital Signs/I&O Vital Signs Date Time Temp Pulse Resp B/P B/P Pulse O2 O2 Flow FiO2 Mean Ox Delivery Rate 06/26 0823 166/88 / 0822 166/88 06/26 0822 166/88 06/26 0648 98.1 69 18 180/82 95 Room Air 06/25 2222 98.4 64 20 132/80 95 Room Air 06/25 1520 98.6 70 20 140/78 92 Room Air Intake & Output 06/26 1600 06/26 0800 06/26 0000 Intake Total 1210 370 Output Total Balance 1210 370 Intake, IV 70 120 Intake, Oral 1140 250 Number 0 0 Bowel Movements Physical Exam General Appearance: Alert, Oriented X3, Cooperative, No Acute Distress Skin: No Significant Lesion Cardiovascular: Regular Rate, Normal S1, Normal S2, systolic murmur Lungs: Clear to Auscultation, Normal Air Movement Abdomen: Normal Bowel Sounds, Soft, No Tenderness Neurological: Normal Speech Current Medications: Current Medications Sig/Aron Start time Last Medication Dose Route Stop Time Status Admin Acetaminophen 650 MG Q6P PRN 06/24 1715 AC 06/26 PO 1345 Allopurinol 150 MG QAM 06/25 1000 AC 06/26 PO 0821 Amlodipine Besylate 5 MG QAM 06/25 1000 AC 06/26 PO 0822 Aspirin 325 MG ONCE ONE 06/26 0800 DC 06/26 PO 06/26 0801 1345 Aspirin Buffered 81 MG DAILY 06/27 1000 AC PO Atorvastatin Calcium 5 MG 1700 06/25 1700 DC PO Atorvastatin Calcium 20 MG 1700 06/25 1700 AC 06/25 PO 1653 Cholecalciferol 2,000 IU DAILY 06/25 1000 AC 06/26 PO 0821 Dexamethasone 4 MG Q6H 06/25 1600 DC 06/26 Dextrose/Water 50 ML IV 06/26 1029 1344 Docusate Sodium 100 MG BID 06/25 1200 AC 06/26 PO 0823 Folic Acid 1 MG DAILY 06/25 1000 AC 06/26 PO 0823 Heparin Sodium 5,000 UNIT Q8 06/24 1709 AC 06/26 (Porcine) SC 1344 Hydroxychloroquine 200 MG BID 06/25 1000 AC 06/26 Sulfate PO 0822 Lisinopril 5 MG QAM 06/25 1000 AC 06/26 PO 0822 Metoprolol Tartrate 25 MG QAM 06/25 1000 AC 06/26 PO 0823 Morphine Sulfate 1 MG Q6-PRN PRN 06/25 0915 AC IV Omeprazole 20 MG DAILY AC 06/25 0918 AC 06/26 PO 0515 Oxybutynin Chloride 5 MG BID 06/24 2200 AC 06/26 PO 0823 Oxycodone/ 2 TAB Q6P PRN 06/24 1715 AC 06/25 Acetaminophen PO 1145 Polyethylene Glycol 17 GM DAILY 06/25 1150 AC 06/26 PO 0819 Senna 187 MG AT BEDTIME 06/25 2200 AC 06/25 PO 2101 Sodium Bicarbonate 650 MG BID 06/25 1000 AC 06/26 PO 0821 Last 24 Hrs of Lab/David Results Last 24 Hrs of Labs/Mics: Laboratory Tests 06/26/16 0640: Anion Gap 9, Estimated GFR 31 L, BUN/Creatinine Ratio 27.5 H, CBC w Diff NO MAN DIFF REQ, RBC 2.71 L, MCV 102.9 H, MCH 35.0 H, RDW 14.1, MPV 8.1, Gran % 87.2 H, Lymphocytes % 9.4 L, Monocytes % 3.2, Eosinophils % 0, Basophils % 0.2 , Absolute Granulocytes 3.4, Absolute Lymphocytes 0.4 L, Absolute Monocytes 0.1 L, Absolute Eosinophils 0, Absolute Basophils 0, PUBS MCHC 34.1 Assessment/Plan Assessment: 85-year-old pleasant female with past medical history of gout, hypertension, hyperlipidemia, osteoarthritis, chronic kidney disease stage III, over active bladder, was seen the day prior to admission in the emergency department after having a fall 2 days prior to admission on 06/22/2016, with CT cervical spine showing moderate to severe spinal stenosis, no acute fractures, and discharged from the emergency department after being treated for positive UA with 1 day of Macrobid, comes back to the ER again with worsening back pain, bilateral lower extremity weakness, with bowel and bladder incontinence. # Lower back pain with new stool incontinence s/p recurrent mechanical falls - CT lumbar spine was done on 06/23/2016 which showed degenerative disc disease and facet arthropathy throughout the lumbar spine, most prominent at T12-L1 and L4-L5, and anterior listhesis of L4 on L5 with moderate central canal and bilateral neural foraminal stenosis. - Xray of the pelvis on 06/23/2016 did not show any acute fracture, showed severe degenerative disc disease, severe left hip osteoarthritis. * Neurosurgery consulted, low suspicion of acute cord compression * Workup for recurrent falls: b12, vit d, folate levels are normal. * carotid US, MRI head, MRI lumbar, and echocardiogram done. incidental ulcerated plaque found in right internal carotid artery, vascular surgery and neurology consulted. After extensive discussion with family, will not pursue endarterectomy, will start baby aspirin. * PT for discharge recc * Neurocheck q4 * Decadron given as per neurosurgery recc * Pain control with morphine, percocet, tylenol. Would avoid NSAIDs given CKD. # Asymptomatic bacteriuria - 06/23/16: She was found to have positive UA and was discharged on nitrofurantoin, took it for one day. * Follow UC * Follow off abx # History of hypertension * Continue Lopressor 25 mg every morning and norvasc # History of hyperlipidemia * Lipitor 5 mg daily # history of CKD stage III # history of chronic arthritis. # Home meds * Continue folic acid, vitamin D DVT prophylaxis with subcutaneous heparin. Heart healthy diet Patient is full code. Problem List: 1. Intractable back pain 2. Fall Pain Ratin Pain Location: low back Pain Goal: Pain 4 or less Pain Plan: percocet Tomorrow's Labs & Rationales: bep hyponatreamia cbc anemia DVT/Prophylaxis: mechanical, pharmacological MARTINEZ ACKERMAN 06/26/16 1122: Attending Review Statement Attending Statement Attending MD Statement: examined this patient, discuss w/resident/PA/TRUMPET TEACHER, agreed w/resident/PA/TRUMPET TEACHER, discussed with family, reviewed EMR data (avail), discussed with nursing, discussed with case mgmt, reviewed images, amended to note Attending Assessment/Plan: 85 O/F ASSESSMENT 1. Recurrent falls. 2. hyperlipidemia 3. CKD stage 3 4. arthritis 5. Hypertension. 6. low back pain 7. urinary and bowel incontinence. 8. Possible UTI. 9. AOCD. 10. 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 PLAN 1. admitted to inpatient medical services, frequent neurochecks. 2. Neurosurgery consulted, no acute surgical intervention. c/w high dose steroids, obtain MRI spine. 3. w/u for recurrent fall including vit b12 wnl, folate wnl, Carotid USG "reveal there is eccentric calcified plaque in the proximal right internal carotid artery to mobile material is attached, most likely representing adherent thrombus to a focal area of plaque ulceration", MRI brain, echo. scheduled o/p for holter on July 05. 4. f/u cultures , monitor off abx for now. 5. Anemia multifacotrial 6. Vascular surgery consulted, recommend no surgical intervention. ASA as a/c. 7. supportive care, monitor labs Patient/family not agreeable to anticoagulation for now. (agree to low dose ASA) , family/patient not in favor of surgery. Patient/family (daughter bedside) explained patients current management plan to which they agree. d/fri nurse, staff, TTS >37 min.
[2016-06-26 07:45] LABS: ABSOLUTE BASOPHIL COUNT 0 /CUMM (0.0-0.2); ABSOLUTE EOSINOPHIL COUNT 0 /CUMM (0.0-0.7); ABSOLUTE GRANULOCYTE CT 3.4 /CUMM (1.4-6.5); ABSOLUTE LYMPH COUNT 0.4 /CUMM (1.2-3.4); ABSOLUTE MONOCYTE COUNT 0.1 /CUMM (0.10-0.60); BASOPHIL % 0.2 % (0.0-2.0); EOSINOPHIL % 0 % (0-5); HEMATOCRIT 27.9 % (37-47); MEAN CORPUSCULAR HGB CONC 34.1 G/DL (33.0-37.0); MEAN CORPUSCULAR VOLUME 102.9 FL (81.0-99.0); MEAN PLATELET VOLUME 8.1 FL (7.4-10.4); PLATELET COUNT 133 /CUMM (130-400); RBC DISTRIBUTION WIDTH 14.1 % (11.5-14.5); RED BLOOD CELL CT 2.71 /CUMM (4.20-5.40); WHITE BLOOD CELL COUNT 3.9 /CUMM (4.8-10.8)
--- NOTE | 2016-06-26 08:12 | Cons- Vascular Surgery ---
General Information and HPI Consulting Request Date of Consult: 06/26/16 Requested By: MARTINEZ ACKERMAN MD Reason for Consult: Patient presented with a history of falls, lower extremity weakness, and incontinence. Carotid ultrasound obtained which shows a mobile thrombus in the right carotid bulb. Source of Information: patient, old records Exam Limitations: poor historian History of Present Illness: According to the patient and the chart, the patient presented with a history of a recent fall and worsening lower extremity weakness and incontinence. A carotid ultrasound was obtained as a workup for syncope which demonstrated no hemodynamically significant lesions in either carotid system. However, a mobile plaque was noted in the right bulb. The patient denies strokelike symptoms. Allergies/Medications Allergies: Coded Allergies: NO KNOWN ALLERGIES (08/07/12) NKDA PER RADIOLOGY NURSE. -- CASSIDY 08/07/12 Home Med List: Allopurinol 300 MG TABLET 0.5 TAB PO QAM GOUT (Reported) Amlodipine Besylate (Norvasc) 5 MG TABLET 1 TAB PO QAM HTN (Reported) Cholecalciferol (Vitamin D3) (Vitamin D) 2,000 UNIT TABLET 1 TAB PO QAM SUPPLEMENT (Reported) Cyanocobalamin (Vitamin B-12) (Unknown Strength) TABLET (Unknown Dose) PO QPM SUPPLEMENT (Reported) Folic Acid 0.8 MG TABLET 1 TAB PO QAM SUPPLEMENT (Reported) Hydroxychlorquine (Plaquenil) 200 MG TABLET 1 TAB PO BID ARTHRITIS (Reported) Lansoprazole 30 MG CAPSULE.DR 1 CAP PO QPM GI (Reported) Lisinopril 5 MG TABLET 1 TAB PO QAM BP (Reported) Magnesium Oxide (Magnesium) 250 MG TABLET 1 TAB PO QAM SUPPLEMENT (Reported) Metoprolol Succinate 25 MG TAB 1 TAB PO QAM HTN (Reported) Nitrofurantoin Monohyd/M-Cryst (Macrobid 100 MG Capsule) 100 MG CAPSULE 1 CAP PO BID UTI with food Prednisone 5 MG TABLET 1 TAB PO QAM ARTHRITIS (Reported) Simvastatin (Simvastatin*) 5 MG TABLET 1 TAB PO QPM CHOLESTEROL (Reported) Sodium Bicarbonate 650 MG TABLET 1 TAB PO BID SUPPLEMENT (Reported) Tolterodine Tartrate (Detrol LA) 4 MG CAP.ER.24H 1 CAP PO QPM OVERACTIVE BLADDER (Reported) Current Medications: Current Medications Sig/Aron Start time Last Medication Dose Route Stop Time Status Admin Acetaminophen 650 MG Q6P PRN 06/24 1715 AC PO Allopurinol 150 MG QAM 05/ 1000 AC 06/25 PO 1145 Amlodipine Besylate 5 MG QAM / 1000 AC 06/25 PO 0944 Aspirin 325 MG ONCE ONE 06/26 0800 DC PO 06/26 0801 Aspirin Buffered 81 MG DAILY / 1000 AC PO Atorvastatin Calcium 5 MG 1700 05/ 1700 DC PO Atorvastatin Calcium 20 MG 1700 05/ 1700 AC 06/25 PO 1653 Cholecalciferol 2,000 IU DAILY / 1000 AC 06/25 PO 0944 Dexamethasone 4 MG Q6H / 1600 AC 06/26 Dextrose/Water 50 ML IV 06/26 1029 0424 Dexamethasone 4 MG Q6 06/25 1200 DC Dextrose/Water 50 ML IV 06/26 0629 Dexamethasone 10 MG ONCE ONE 06/25 0915 DC 06/25 Dextrose/Water 50 ML IV 06/25 0945 0946 Docusate Sodium 100 MG BID / 1200 AC 06/25 PO 2101 Folic Acid 1 MG DAILY / 1000 AC 06/25 PO 0941 Heparin Sodium 5,000 UNIT Q8 06/24 1709 AC 06/26 (Porcine) SC 0515 Hydroxychloroquine 200 MG BID 06/25 1000 AC 06/25 Sulfate PO 2101 Lisinopril 5 MG QAM 06/25 1000 AC 06/25 PO 0944 Metoprolol Tartrate 25 MG QAM / 1000 AC 06/25 PO 0944 Morphine Sulfate 1 MG Q6-PRN PRN 06/25 0915 AC IV Omeprazole 20 MG DAILY AC 06/25 0918 AC 06/26 PO 0515 Oxybutynin Chloride 5 MG BID 06/24 2200 AC 06/25 PO 2101 Oxycodone HCl 5 MG Q6H 06/24 1715 DC 06/25 PO 0527 Oxycodone/ 2 TAB Q6P PRN 06/24 1715 AC 06/25 Acetaminophen PO 1145 Polyethylene Glycol 17 GM DAILY 06/25 1150 AC 06/25 PO 1241 Senna 187 MG AT BEDTIME 06/25 2200 AC 06/25 PO 2101 Sodium Bicarbonate 650 MG BID 06/25 1000 AC 06/25 PO 2101 Past History Medical History Blood Transfusion Hx: Yes Neurological: NONE EENT: NONE Cardiovascular: hypertension, hyperlipidemia Respiratory: NONE Gastrointestinal: NONE Hepatic: NONE Renal: KIDNEY ISSUES PER PT OVERACTIVE BLADDER Musculoskeletal: ARTHRITIS FREQUENT FALLS Psychiatric: NONE Endocrine: NONE Blood Disorders: NONE Cancer(s): NONE LAST CODE STRIPER/Reproductive: NONE Surgical History Pertinent Surgical History: non-contributory Psychosocial History Where Do You Live? Home Who Do You Live With? spouse Services at Home: None Primary Language: Japanese Smoking Status: Never Smoked ETOH Use: denies use Illicit Drug Use: denies illicit drug use Functional Ability ADLs Independent: dressing, eating, toileting, bathing. Ambulation: walker IADLs Independent: shopping, housework, finances, food prep, telephone, transportation , medication admin. Review of Systems Review of Systems: The patient has no complaints on my exam. Exam & Diagnostic Data Vital Signs and I&O Vital Signs Date Time Temp Pulse Resp B/P B/P Pulse O2 O2 Flow FiO2 Mean Ox Delivery Rate 06/26 0648 98.1 69 18 180/82 95 Room Air 06/25 2222 98.4 64 20 132/80 95 Room Air 06/25 1520 98.6 70 20 140/78 92 Room Air 06/25 1216 Room Air Room Air 06/25 0944 76 130/58 Intake & Output 06/26 1600 / 0800 / 0000 / 1600 / 0800 05/ 0000 Intake Total 1210 297 662 3110 200 Output Total 100 Balance 1210 319 348 9776 100 Intake, IV 70 120 200 800 Intake, Oral 1140 250 480 200 200 Number 0 0 Bowel Movements Output, Urine 100 Patient 58.06 kg Weight Weight Reported by Patient Measurement Method Physical Exam General Appearance: alert, awake Head: normal appearance Neck: normal inspection Cardiovascular: regular rate/rhythm Peripheral Pulses: 2+ radial (R), 2+ radial (L), 2+ dorsalis pedis (R), 2+ dorsalis pedis (L) Gastrointestinal: soft, non-tender Rectal: deferred Last 24 Hours of Labs: Laboratory Tests 06/26 0640 Chemistry Sodium Pending Potassium Pending Chloride Pending Carbon Dioxide Pending Anion Gap Pending BUN Pending Creatinine Pending BUN/Creatinine Ratio Pending Hematology CBC w Diff Pending WBC Pending RBC Pending Hgb Pending Hct Pending MCV Pending MCH Pending RDW Pending Plt Count Pending MPV Pending PUBS MCHC Pending Assessment/Plan Assessment/Plan This is an 85-year-old female with a recent fall who underwent a workup for syncope. This included a carotid Doppler ultrasound which demonstrated mild bilateral plaque in the carotid bulbs with a mobile thrombus noted in the right bulb. According to the patient, she has been routinely followed for her carotids with serial ultrasounds by Dr. Campos in [place], however, she does not know why she has been followed given the fact that she does not have hemodynamically significant disease, and has never demonstrated neurologic symptoms. She is not currently maintained on either anticoagulation or antiplatelet agents. She reports she has previously been on Coumadin for her knee. There is a question as to whether or not this was stopped due to GI bleeding. Given the patient's asymptomatic status, her other ongoing medical issues, and the lack of a true hemodynamically significant plaque, I do not recommend surgical intervention at this time. She should, however, be started on some form of anticoagulation. I would involve neurology to evaluate and comment on their recommendations regarding anticoagulation. I feel at a minimum she should be on an oral antiplatelet agent (aspirin). This can be combined with a second agent for dual antiplatelet therapy or full anticoagulation can be considered (in the setting of her other medical problems and continued workup for syncope). I do not feel further imaging with MRI would be helpful. A CT angiogram would better characterize the plaque, however, given her DARLENE I do not feel this is indicated. We will sign off, please contact with further questions. Problem List: 1. Fall Consult Acknowledgment - Thank you for your consult request. Attending MD Review Statement Attending Statement Attending MD Statement: examined this patient, discuss w/resident/PA/GAMEPLAY ENGINEER
[2016-06-26 08:44] LABS: GRANULOCYTE % 87.2 % (42.2-75.2)
--- NOTE | 2016-06-26 09:53 | ECHOCARDIOGRAM REPORT ---
BETTY FRIAS Age: 85 : 1930 Gender: F Exam Date: 06/25/2016 19:57 Exam Location: [address] [place] [address] Ht (in): 60 Wt (lb): 128 BSA: 1.58 BP: 130 / 58 Ordering Physician: MARYAM DICKSON MD Referring Physician: MARYAM DICKSON MD Technologist: Leticia Smith [facility] Room Number: [id number] Indications: PRESYNCOPE/SYNCOPE Rhythm: Technical Quality: Fair FINDINGS Left Ventricle Left ventricular cavity size normal. Left ventricular wall thickness mildly increased. Paradoxical septal motion. Left ventricular ejection fraction is estimated at 55 %. Abnormal relaxation filling pattern of the left ventricle for (stage 1 diastolic dysfunction). Right Ventricle Normal right ventricular size and function. Right Atrium Normal right atrial size. Left Atrium Mild left atrial dilatation. Mitral Valve Mild mitral annular calcification. No mitral stenosis. Moderate mitral regurgitation. Aortic Valve Aortic sclerosis. Trace aortic regurgitation. Mild aortic stenosis. Tricuspid Valve Structurally normal tricuspid valve. Mild tricuspid regurgitation. Unable to estimate the right ventricular systolic pressure. Pulmonic Valve Pulmonic valve not well visualized, grossly normal. Pericardium No pericardial effusion. Great Vessels Normal size aortic root. CONCLUSIONS Left ventricular cavity size normal. Left ventricular wall thickness mildly increased. Paradoxical septal motion. Left ventricular ejection fraction is estimated at 55 %. Abnormal relaxation filling pattern of the left ventricle for (stage 1 diastolic dysfunction). Normal right ventricular size and function. Mild left atrial dilatation. Moderate mitral regurgitation. Mild aortic stenosis. Unable to estimate the right ventricular systolic pressure. Vincent Blake M.D. (Electronically Signed) Final Date: 26 Jun 2016 09:53 MEASUREMENTS (Male / Female) Normal Values 2D ECHO LV Diastolic Diameter PLAX 3.4 cm 4.2 - 5.9 / 3.9 - 5.3 cm LV Systolic Diameter PLAX 2.3 cm 2.1 - 4.0 cm LV Fractional Shortening PLAX 32.4 % 25 - 46 % LV Ejection Fraction 2D Teich 61.8 % IVS Diastolic Thickness 1.4 cm LVPW Diastolic Thickness 1.3 cm LV Relative Wall Thickness 0.8 RV Internal Dim ED PLAX 2.4 cm 1.9 - 3.8 cm LVOT Diameter 2.1 cm Aortic Root Diameter 2.4 cm LA Systolic Diameter LX 3.4 cm 3.0 - 4.0 / 2.7 - 3.8 cm LA Volume 34.0 cm 18 - 58 / 22 - 52 cm Ascending Aorta Diameter 2.9 cm DOPPLER AV Peak Velocity 279.0 cm/s AV Peak Gradient 31.1 mmHg AV Mean Velocity 209.0 cm/s AV Mean Gradient 19.0 mmHg AV Velocity Time Integral 74.9 cm LVOT Peak Velocity 81.2 cm/s LVOT Peak Gradient 2.6 mmHg LVOT Mean Velocity 57.7 cm/s LVOT Mean Gradient 2.0 mmHg LVOT Velocity Time Integral 21.1 cm LVOT Stroke Volume 73.1 cm AV Area Cont Eq vti 1.0 cm AV Area Cont Eq pk 1.0 cm MV Peak Velocity 126.0 cm/s MV Peak Gradient 6.4 mmHg MV Mean Velocity 58.7 cm/s MV Mean Gradient 2.0 mmHg Mitral E Point Velocity 47.4 cm/s Mitral A Point Velocity 95.8 cm/s Mitral E to A Ratio 0.5 MV PHT Velocity 65.2 cm/s MV Deceleration Travis 119.0 cm/s MV Pressure Half Time 164.4 ms MV Area PHT 1.3 cm MV Deceleration Time 473.0 ms TR Peak Velocity 295.0 cm/s TR Peak Gradient 34.8 mmHg Right Atrial Pressure 5.0 mmHg Pulmonary Artery Systolic Pressu 39.8 mmHg Right Ventricular Systolic Press 39.8 mmHg PV Peak Velocity 97.9 cm/s PV Peak Gradient 3.8 mmHg PV Mean Velocity 66.4 cm/s PV Mean Gradient 2.0 mmHg PV Velocity Time Integral 21.5 cm LV E' Lateral Velocity 4.3 cm/s Mitral E to LV E' Lateral Ratio 10.9 LV E' Septal Velocity 4.4 cm/s Mitral E to LV E' Septal Ratio 10.8
[2016-06-26] MEDS ORDERED: ASPIRIN EC81 M1 PO (13:04)
--- NOTE | 2016-06-26 13:10 | MRI REPORT ---
EXAMINATION: MR BRAIN WITHOUT CONTRAST CLINICAL INFORMATION: Recurrent falls. COMPARISON: Head CT from 12/18/2015. TECHNIQUE: Multiplanar, multisequence imaging of the brain was performed without contrast. The study is limited due to motion artifacts. FINDINGS: No diffusion abnormalities are identified to suggest an acute or subacute infarct. There is no evidence of hydrocephalus. No mass effect or midline shift is seen. Moderate chronic white matter microangiopathic changes are noted with diffuse parenchymal volume loss. No extra-axial fluid collections are seen. The brainstem is normal. 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 A punctate focus of low signal on the gradient acquisition in the right cerebellar white matter is nonspecific and may be due to mineralization versus chronic hemosiderin. The craniovertebral junction, marrow signal, and midline structures are normal. The major intracranial flow voids at the level of the [place] of [place] are preserved. The dural venous sinus flow voids are maintained. The mastoid air cells and paranasal sinuses are well aerated. IMPRESSION: Limited study with motion artifacts. No acute infarct. Moderate chronic white matter microangiopathy and generalized parenchymal volume loss.
--- NOTE | 2016-06-26 13:42 | Cons- Neurology ---
General Information and HPI Consulting Request Date of Consult: 06/26/16 Requested By: MEKA GARCIA,MARTINEZ History of Present Illness: Courtney 85-year-old female stenting after a mechanical fall on the stairs as several days ago, traumatizing her pelvis. There was no loss of consciousness, vertigo or lightheadedness. Subsequent to the fall she has had heightened low back pain as well as incontinence for both bladder and bowel. As part of her hospital workup, she underwent a carotid ultrasound which showed calcified plaque in the right internal carotid artery with mobile material adherent to the plaque likely consistent with thrombus. There was no hemodynamically significant stenosis. Neurology has been asked to comment. She denies prior history of TIA or CVA. There has been no sudden visual loss, dysarthria, paresthesia or lateralizing complaints CT scan of the lumbar spine performed on June 23 showed multilevel DJD, most pronounced at the level of T12-L1 and L4-5 with anterolisthesis of L4 on L5 and moderate central stenosis. Urinalysis was suggestive of infection Allergies/Medications Allergies: Coded Allergies: NO KNOWN ALLERGIES (08/07/12) NKDA PER RADIOLOGY NURSE. -- CASSIDY 08/07/12 Home Med List: Allopurinol 300 MG TABLET 0.5 TAB PO QAM GOUT (Reported) Amlodipine Besylate (Norvasc) 5 MG TABLET 1 TAB PO QAM HTN (Reported) Aspirin (Ecotrin*) 81 MG TABLET.DR 81 MG PO DAILY stroke Cholecalciferol (Vitamin D3) (Vitamin D) 2,000 UNIT TABLET 1 TAB PO QAM SUPPLEMENT (Reported) Cyanocobalamin (Vitamin B-12) (Unknown Strength) TABLET (Unknown Dose) PO QPM SUPPLEMENT (Reported) Folic Acid 0.8 MG TABLET 1 TAB PO QAM SUPPLEMENT (Reported) Hydroxychlorquine (Plaquenil) 200 MG TABLET 1 TAB PO BID ARTHRITIS (Reported) Lansoprazole 30 MG CAPSULE.DR 1 CAP PO QPM GI (Reported) Lisinopril 5 MG TABLET 1 TAB PO QAM BP (Reported) Magnesium Oxide (Magnesium) 250 MG TABLET 1 TAB PO QAM SUPPLEMENT (Reported) Metoprolol Succinate 25 MG TAB 1 TAB PO QAM HTN (Reported) Nitrofurantoin Monohyd/M-Cryst (Macrobid 100 MG Capsule) 100 MG CAPSULE 1 CAP PO BID UTI with food Prednisone 5 MG TABLET 1 TAB PO QAM ARTHRITIS (Reported) Simvastatin (Simvastatin*) 5 MG TABLET 1 TAB PO QPM CHOLESTEROL (Reported) Sodium Bicarbonate 650 MG TABLET 1 TAB PO BID SUPPLEMENT (Reported) Tolterodine Tartrate (Detrol LA) 4 MG CAP.ER.24H 1 CAP PO QPM OVERACTIVE BLADDER (Reported) Review of Systems Review of Systems: Notable for low back pain, incontinence of urine and bowel. 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 Home Who Do You Live With? spouse Services at Home: None Primary Language: Northern Irish Smoking Status: Never Smoked ETOH Use: denies use Illicit Drug Use: denies illicit drug use Functional Ability ADLs Independent: dressing, eating, toileting, bathing. Ambulation: walker IADLs Independent: shopping, housework, finances, food prep, telephone, transportation , medication admin. Exam & Diagnostic Data Vital Signs and I&O Vital Signs Date Time Temp Pulse Resp B/P B/P Pulse O2 O2 Flow FiO2 Mean Ox Delivery Rate 06/26 0823 166/88 06/26 0822 166/88 06/26 0822 166/88 06/26 0648 98.1 69 18 180/82 95 Room Air 06/25 2222 98.4 64 20 132/80 95 Room Air 06/25 1520 98.6 70 20 140/78 92 Room Air Intake & Output 06/26 1600 06/26 0800 06/26 0000 Intake Total 1210 370 Output Total Balance 1210 370 Intake, IV 70 120 Intake, Oral 1140 250 Number 0 0 Bowel Movements Very pleasant elderly white female in no acute distress. Higher cortical function was intact. Speech was fluent. Pupils were equal and reactive. Extraocular movements were full. There was no nystagmus. Face was symmetric. Tongue was midline; there was no dysarthria. The motor examination showed no focal or lateralizing weakness. Specifically, power appeared intact in the lower extremities even in the supine position. Deep tendon reflexes were hypoactive. Plantar responses were flexor. The sensory examination was normal to light touch and joint position sense. Fine finger movements and rapid alternating movements were performed normally. Gait was not evaluated. Assessment/Plan Assessment: #1 mechanical fall with trauma to the low back opening and low back pain and incontinence. This may reflect trauma to the cauda equina however there is currently no significant leg weakness or sensory disturbance. She had a mildly abnormal urinalysis; UTI is questioned. #2 incidental finding of probable thrombus within the right internal carotid artery. In view of her age, comorbidities and absence of symptoms referable to this lesion, we would treat conservatively. Recommendations: Suggest aspirin 81 mg. Physical therapy with hopes of reestablishing her baseline ambulatory status. Neurosurgical intervention would not be considered. Should incontinence remain problematic, would recommend formal evaluation. Consider antibiotics for possible UTI. I would be happy to reevaluate her in the office setting several weeks after admission Please feel free to call with any further questions. Consult Acknowledgment - Thank you for your consult request.
--- NOTE | 2016-06-26 13:44 | Patient Discharge Instructions ---
Discharge Instructions General Discharge Information You were seen/treated for: Low back pain due to mechanical fall Special Instructions: Follow up with PCP in 1 week. Follow up with Dr Osullivan for holter monitor on 07/05/16 Diet Continue normal diet: Yes Recommended Diet: Heart Healthy, GROUND MEAT Activity Full Activity/No Limits: Yes Acute Coronary Syndrome Inclusion Criteria At DC or during hospital stay patient has or had the following: ACS DIAGNOSIS No Discharge Core Measures Meds if any: Prescribed or Continued at Discharge Meds if any: NOT Prescribed or Continued at Discharge Congestive Heart Failure Inclusion Criteria At DC or during hospital stay patient has or had the following: CHF DIAGNOSIS No Discharge Core Measures Meds if any: Prescribed or Continued at Discharge Meds if any: NOT Prescribed or Continued at Discharge Cerebrovascular accident Inclusion Criteria At DC or during hospital stay patient has or had the following: CVA/TIA Diagnosis No Discharge Core Measures Meds if any: Prescribed or Continued at Discharge Meds if any: NOT Prescribed or Continued at Discharge Venous thromboembolism Inclusion Criteria VTE Diagnosis No VTE Type NONE VTE Confirmed by (Test) NONE Discharge Core Measures - Per Current guidelines, there needs to be overlap - treatment for the first 5 days of Warfarin therapy. - If discharged on Warfarin prior to 5 days of - overlap therapy, the patient will need to be - assessed for post discharge needs including - *Post discharge parental anticoagulation - *Warfarin and/or parental anticoagulation education - *Follow up date to check INR post discharge At least 5 days overlap therapy as Inpatient No Meds if any: Prescribed or Continued at Discharge Note: Overlap Therapy is Warfarin and Anticoagulant Meds if any: NOT Prescribed or Continued at Discharge
--- NOTE | 2016-06-26 13:46 | MRI REPORT ---
EXAMINATION: MR LUMBAR SPINE WITHOUT CONTRAST CLINICAL INFORMATION: Status post fall with bowel and urinary incontinence. COMPARISON: CT lumbar spine, 06/23/2016. TECHNIQUE: MRI of the lumbar spine without contrast was obtained using routine sequences on a high-field 1.5 Rosita magnet. FINDINGS: VERTEBRAL BODIES AND PARASPINAL STRUCTURES: No acute fractures within anterior posterior elements of the lumbar spine. At L4-L5, the severe facet osteoarthritis and disc degeneration associated with 0.8 cm of grade 2 anterolisthesis of L4 on L5. Otherwise, lumbar alignment is maintained. No paraspinal fluid collection. CONUS MEDULLARIS AND CAUDA EQUINA: The conus medullaris is normal, terminating at the L1 level. The nerves of the cauda equina are normal with respect to their caliber, course and signal intensity. SPINAL LEVELS: T12-L1: Moderate degenerative loss of disc height, traction osteophyte formation and disc bulge without significant narrowing of the central canal or neural foramina. L1-L2: Minimal left paracentral disc protrusion without significant narrowing of the central canal or foramina. L2-L3: Facet arthropathy and mild ligament flavum hypertrophy. Broad disc bulge and superimposed left-sided protrusion involving the left foraminal/extraforaminal zone causing moderate left foraminal stenosis. L3-L4: Moderate facet arthropathy and ligamentum flavum hypertrophy, broad disc bulge, and mild bilateral foraminal stenosis. Mild central canal stenosis. L4-L5: Severe facet osteoarthritis and disc degeneration with grade 2 anterolisthesis of L4 on L5 resulting in [id number] left foraminal stenosis, severe right foraminal stenosis and mild central canal stenosis. L5-S1: Minimal disc bulge. [id number] bilateral facet arthropathy. No significant narrowing of the central canal or neural foramina. Sacrum: Limited imaging to the sacrum shows nondisplaced, incomplete fracture horizontally oriented within anterior cortex of the S2 vertebra. Also, there is mild, patchy marrow edema within the sacral ala suggestive of trabecular microfractures. There is osteoarthrosis of sacroiliac joints. IMPRESSION: 1. No evidence of spinal cord compression. 2. 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 Degenerative disc disease is most severe at L4-L5 and there is grade 2 anterolisthesis of L4 on L5. The neural foraminal stenosis is most severe on the right at L4-L5. 3. Patchy bone marrow edema is present within the sacrum. Also, there appears to be a horizontally oriented fracture involving the anterior cortex of S2.
[2016-06-26 14:35] VITALS: BP 140/80
[2016-06-26 22:31] VITALS: BP 136/68
[2016-06-27 06:20] VITALS: BP 138/82
--- NOTE | 2016-06-27 07:00 | PN- Housestaff ---
YESSI GARCIA,MARYAM 06/27/16 0700: Subjective Follow-up For: fall with back pain Subjective: Pt seen this morning, was in good spirits. continued to have 4/10 back pain, which is tolerable for her. plan to work with Pt and anticipate dc to rehab today. pt's preference is [facility]. no documented bm since admission despite getting bowel regimen, will give 1X suppository. st evaluated and recc ground meat diet. her voice was hoarse this morning, she was able to drink a cup of water without problem. Review of Systems Constitutional: Reports: see HPI. Objective Last 24 Hrs of Vital Signs/I&O Vital Signs Date Time Temp Pulse Resp B/P B/P Pulse O2 O2 Flow FiO2 Mean Ox Delivery Rate 06/27 0620 97.8 68 20 138/82 96 Room Air 06/26 2231 98.2 65 22 136/68 96 Room Air 06/26 1435 99.1 62 20 140/80 96 Room Air Intake & Output 06/27 1600 06/27 0800 06/27 0000 Intake Total 350 Output Total Balance 350 Intake, Oral 350 Physical Exam General Appearance: Alert, Oriented X3, Cooperative, No Acute Distress Cardiovascular: Regular Rate, systolic murmur present Lungs: Clear to Auscultation, Normal Air Movement Abdomen: Normal Bowel Sounds, Soft, No Tenderness Neurological: Normal Speech, Sensation Intact Current Medications: Current Medications Sig/Aron Start time Last Medication Dose Route Stop Time Status Admin Acetaminophen 650 MG .STK-MED ONE 06/26 2150 DC PO 06/26 2151 Acetaminophen 650 MG .STK-MED ONE 06/26 1342 DC PO 06/26 1343 Acetaminophen 650 MG Q6P PRN 06/24 1715 AC 06/26 PO 2149 Allopurinol 150 MG QAM 06/25 1000 AC 06/26 PO 0821 Amlodipine Besylate 5 MG QAM / 1000 AC 06/26 PO 0822 Aspirin Buffered 81 MG DAILY 06/27 1000 AC PO Atorvastatin Calcium 20 MG 1700 05/ 1700 AC / PO 1753 Bisacodyl 10 MG ONCE ONE 06/27 0830 UNVr TX 06/27 0831 Cholecalciferol 2,000 IU DAILY 06/25 1000 AC / PO 0821 Dexamethasone 4 MG Q6H 06/25 1600 DC 06/26 Dextrose/Water 50 ML IV 06/26 1029 1344 Docusate Sodium 100 MG BID 06/25 1200 AC 06/26 PO 2146 Folic Acid 1 MG DAILY 06/25 1000 AC 06/26 PO 0823 Heparin Sodium 5,000 UNIT Q8 06/24 1709 AC 06/27 (Porcine) SC 0704 Hydroxychloroquine 200 MG BID 06/25 1000 AC 06/26 Sulfate PO 2147 Lisinopril 5 MG QAM 06/25 1000 AC 06/26 PO 0822 Metoprolol Tartrate 25 MG QAM 06/25 1000 AC 06/26 PO 0823 Morphine Sulfate 1 MG Q6-PRN PRN 06/25 0915 AC IV Omeprazole 20 MG DAILY AC 06/25 0918 AC 06/27 PO 0705 Oxybutynin Chloride 5 MG BID 06/24 2200 AC 06/26 PO 2146 Oxycodone/ 2 TAB Q6P PRN 06/24 1715 AC 06/25 Acetaminophen PO 1145 Patient Medication 1 ED .STK-MED ONE 06/26 1406 [place] Teaching ED 06/26 1407 Polyethylene Glycol 17 GM DAILY 06/25 1150 AC 06/26 PO 0819 Senna 187 MG AT BEDTIME 06/25 2200 AC 06/26 PO 2146 Sodium Bicarbonate 650 MG BID 06/25 1000 AC 06/26 PO 2146 Assessment/Plan Assessment: 85-year-old pleasant female with past medical history of gout, hypertension, hyperlipidemia, osteoarthritis, chronic kidney disease stage III, over active bladder, was seen the day prior to admission in the emergency department after having a fall 2 days prior to admission on 06/22/2016, with CT cervical spine showing moderate to severe spinal stenosis, no acute fractures, and discharged from the emergency department after being treated for positive UA with 1 day of Macrobid, comes back to the ER again with worsening back pain, bilateral lower extremity weakness, with bowel and bladder incontinence. # Lower back pain with new stool incontinence s/p recurrent mechanical falls - CT lumbar spine was done on 06/23/2016 which showed degenerative disc disease and facet arthropathy throughout the lumbar spine, most prominent at T12-L1 and L4-L5, and anterior listhesis of L4 on L5 with moderate central canal and bilateral neural foraminal stenosis. - Xray of the pelvis on 06/23/2016 did not show any acute fracture, showed severe degenerative disc disease, severe left hip osteoarthritis. * Neurosurgery consulted, low suspicion of acute cord compression * Workup for recurrent falls: b12, vit d, folate levels are normal. * carotid US, MRI head, MRI lumbar, and echocardiogram done. incidental ulcerated plaque found in right internal carotid artery, vascular surgery and neurology consulted. After extensive discussion with family, will not pursue endarterectomy, baby aspirin started. * PT for discharge recc * Neurocheck q4 * Decadron given as per neurosurgery recc * Pain control with morphine, percocet, tylenol. Would avoid NSAIDs given CKD. * Bowel regimen # Asymptomatic bacteriuria - 06/23/16: She was found to have positive UA and was discharged on nitrofurantoin, took it for one day. * Follow UC: NGTD * Follow off abx # History of hypertension * Continue Lopressor 25 mg every morning and norvasc # History of hyperlipidemia * Lipitor 5 mg daily # history of CKD stage III # history of chronic arthritis. # Home meds * Continue folic acid, vitamin D DVT prophylaxis with subcutaneous heparin. Heart healthy diet Patient is full code. Problem List: 1. Intractable back pain 2. Fall Pain Ratin Pain Location: low back Pain Goal: Pain 4 or less Pain Plan: percocet Tomorrow's Labs & Rationales: none DVT/Prophylaxis: mechanical, pharmacological MARTINEZ ACKERMAN 06/27/16 1143: Attending MD Review Statement Attending Statement Attending MD Statement: examined this patient, discuss w/resident/PA/AIRCRAFT SERVICER, agreed w/resident/PA/AIRCRAFT SERVICER, discussed with family, reviewed EMR data (avail), discussed with nursing, discussed with case mgmt, reviewed images, amended to note Attending Assessment/Plan: ASSESSMENT 1. Recurrent falls. 2. hyperlipidemia 3. CKD stage 3 4. arthritis 5. Hypertension. 6. low back pain 7. urinary incontinence. 8. Constipation 9. AOCD. 10. 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 PLAN 1. admitted to inpatient medical services, frequent neurochecks. 2. Neurosurgery consulted, no acute surgical intervention. Taper steroids, MRI spine for bone edema in LS area. Patient agreeable to conservative management. 3. w/u for recurrent fall including vit b12 wnl, folate wnl, Carotid USG "reveal there is eccentric calcified plaque in the proximal right internal carotid artery to mobile material is attached, most likely representing adherent thrombus to a focal area of plaque ulceration", MRI brain negative for acute stroke, echo with EF 55%, scheduled o/p for holter on July 05. 4. f/u cultures negative , monitor off abx for now. 5. Anemia multifacotrial. 6. Vascular surgery consulted, recommend no surgical intervention. ASA as a/c. 7. supportive care 8. PT recommends STR 9. d/c planning for STR. d/w case management. Patient/family not agreeable to anticoagulation for now. (agree to low dose ASA) , family/patient not in favor of surgery. Patient/family (daughter bedside) explained patients current management plan to which they agree. d/wed nurse, staff, TTS >37 min.
[2016-06-27 08:24] LABS: ABSOLUTE BASOPHIL COUNT 0 /CUMM (0.0-0.2); ABSOLUTE EOSINOPHIL COUNT 0 /CUMM (0.0-0.7); ABSOLUTE LYMPH COUNT 0.8 /CUMM (1.2-3.4); EOSINOPHIL % 0 % (0-5); RED BLOOD CELL CT 2.71 /CUMM (4.20-5.40)
[2016-06-27 08:34] LABS: ABSOLUTE GRANULOCYTE CT 5.2 /CUMM (1.4-6.5); ABSOLUTE MONOCYTE COUNT 0.5 /CUMM (0.10-0.60); BASOPHIL % 0.3 % (0.0-2.0); GRANULOCYTE % 79.7 % (42.2-75.2); HEMATOCRIT 27.5 % (37-47); MEAN CORPUSCULAR HGB 34.3 PG (27.0-31.0); MEAN CORPUSCULAR HGB CONC 33.7 G/DL (33.0-37.0); MEAN CORPUSCULAR VOLUME 101.7 FL (81.0-99.0); MEAN PLATELET VOLUME 8.1 FL (7.4-10.4); PLATELET COUNT 145 /CUMM (130-400); RBC DISTRIBUTION WIDTH 13.8 % (11.5-14.5)
[2016-06-27 08:37] LABS: WHITE BLOOD CELL COUNT 6.5 /CUMM (4.8-10.8)
[2016-06-27] MEDS ORDERED: ATORVASTATIN CA20 M1 PO (09:58)
[2016-06-27 14:09] VITALS: BP 130/80
[2016-06-27 15:02] VITALS: BP 130/80
== END 2016-06-27 15:05 | DRG 552 ==
LOC: ERH 12:36 → ERHI 16:28 → 2NB 16:28 → ENRESERV 18:50 → 2NB 20:16 → ENPENDDIS 06-27 13:20 → 2NB 06-27 15:05
PROVIDERS: Internal Medicine; Physician Assistant Medical; Radiology Diagnostic Radiology; ADMIT Hospitalist
DX: M51.36 Other intervertebral disc degeneration, lumbar region (principal); N18.3 Chronic kidney disease, stage 3 (moderate); I65.21 Occlusion and stenosis of right carotid artery; I12.9 Hypertensive chronic kidney disease with stage 1 through stage 4 chronic kidney disease, or unspecified chronic kidney disease; M10.9 Gout, unspecified; E78.5 Hyperlipidemia, unspecified; N32.81 Overactive bladder; M48.06 Spinal stenosis, lumbar region; R32 Unspecified urinary incontinence; Z91.81 History of falling
CPT/HCPCS: 2NSBP; 70551; 72148; 72170; 81001; 82436; 87086; 93005; 93010; 93306; J1100; J1644; J3490